=== PATIENT | female | born 1965 | race Caucasian/White ===

== ENCOUNTER → 2018-03-01 13:42 | Outpatient (CLI) | payer OTHER, SELFPAY ==
[2018-03-01 14:00] LABS: Add Manual Diff / Slide Review NO; Basophils Percent Auto 0.7 % (0-2); Hematocrit 38.6 % (36-46); Hemoglobin 13.7 g/dL (12.0-16.0); Lymphocytes Percent Auto 31.2 % (25-40); Mean Corpuscular HGB Conc 35.5 % (30-36); Mean Corpuscular Hemoglobin 32.3 PG (26-34); Mean Corpuscular Volume 90.8 fL (80-100); Monocytes Percent Auto 9.7 % (3-14); Neutrophils Absolute Auto 2900 /uL (3000-5900); Neutrophils Percent Auto 56.4 % (50-75); Platelet Count 188 X10^3/uL (150-400); Red Blood Cell Count 4.25 X10^6/uL (4.0-5.2); Red Cell Distribution Width 12.7 % (11.6-14.8); White Blood Cell Count 5.2 X10^3/uL (4.5-11.0)
[2018-03-01 14:20] LABS: Alanine Aminotransferase 26 IU/L (9-52); Albumin 4.1 g/dL (3.5-5.0); Albumin Globulin Ratio 1.6 (1.0-2.8); Alkaline Phosphatase 53 U/L (38-126); Aspartate Aminotransferase 27 IU/L (14-36); Bilirubin Total 0.3 mg/dL (0.2-1.3); Blood Urea Nitrogen 14 mg/dL (7-17); Calcium 9.5 mg/dL (8.4-10.2); Carbon Dioxide 27 mmol/L (22-32); Chloride 103 mmol/L (98-107); Estimated Glomerular Filt Rate > 60.0 mL/min (>60); Globulin 2.6 g/dL (1.7-4.1); Glucose 94 mg/dL (70-100); HEMOLYSIS < 15 (0-50); Sodium 140 mmol/L (137-145); Total Protein 6.7 g/dL (6.3-8.2)
== END ==
PROVIDERS: Family Provider Internal Medicine; PCP Internal Medicine; Visit Provider Nurse Practitioner Gerontology
DX: C50.912 Malignant neoplasm of unspecified site of left female breast (principal)
CPT/HCPCS: 36415; 80053; 85025

== ENCOUNTER 2018-03-28 12:52 | Day surgery (SDC) | payer OTHER, SELFPAY ==
[2018-03-28 13:28] VITALS: BP 119/72; PULSE 75; RESP 16; TEMP 36.2; O2SAT 98; BMI 29.9
[2018-03-28] MEDS: SODIUM CHLORIDE 0.9% 1,000 ML 200 ML IV (13:41)
--- NOTE | 2018-03-28 14:38 | PM.HP.1 ---
History of Present Illness Date Patient Seen: 03/28/18 Time Patient Seen: 14:38 Chief complaint: colonoscopy [id number] Narrative: Very pleasant 52-year-old lady presents for her 1st screening colonoscopy. She denies any problems or symptoms related to the function of her GI tract. She reports she needs colonoscopy as part of health maintenance program. Patient History Surgical History History of third molar tooth extraction Status post delivery (02/14/97) Status post tonsillectomy and adenoidectomy Family & Social History Family History: Reviewed 03/28/18 by Miriam Lino MD Social History: household members spouse Meds Home Medications Medication Instructions Recorded Confirmed Type fexofenadine 180 mg PO Q DAY #0 07/07/11 03/20/18 History MULTIVITAMIN 1 tab PO QDAY #0 tab 03/18/16 03/20/18 History fluticasone [Flonase Allergy 1 spray INTRANASAL QDAY #1 bot 03/18/16 03/20/18 History Relief] ibuprofen 400 mg PO PRN #0 04/08/16 History pseudoephedrine HCl 60 mg PO PRN PRN #0 04/08/16 History VITAMIN D (Vitamin D3) 2,000 unit PO QDAY #0 05/20/16 03/20/18 History [PROBIOTIC] Q DAY #0 05/20/16 History diphenhydramine HCl [Benadryl 25 mg PO Q6HP PRN #0 06/08/16 History Allergy] alprazolam [Xanax] 0.5 mg PO Q8HP PRN #60 tab 11/09/16 Rx oxybutynin chloride 5 mg PO BID #180 tab 05/18/17 03/20/18 Rx diclofenac sodium [Voltaren] 1 sima TOPICAL Q2HP PRN #100 gm 07/14/17 Rx estradiol [Vagifem] 10 mcg VAGINAL SEE INSTRUCTIONS #8 09/01/17 Rx tab fluconazole [Diflucan] 150 mg PO X 1 #2 tab 09/01/17 Rx estradiol [Estring] 0.0075 mg VAGINAL Q 3 MONTHS #1 icr 09/14/17 03/20/18 Rx tamoxifen 20 mg PO QDAY #90 tab 11/30/17 03/20/18 Rx albuterol sulfate [Ventolin HFA] 2 puff INH Q8H PRN 03/07/18 History anastrozole 1 mg tablet 1 mg PO DAILY #30 tab MDD 1 03/20/18 Rx Allergies Allergy/AdvReac Type Severity Reaction Status Date / Time codeine [CODEINE] Allergy Unknown vomiting Unverified 11/09/17 12:16 latex [LATEX] Allergy Unknown Unverified 11/09/17 12:16 Review of Systems Review of Systems All systems reviewed & are unremarkable except as noted in HPI and below Exam Vital Signs (past 8 hours): - 03/28/18 13:28 Temperature 97.2 F L Pulse Rate 75 Respiratory Rate 16 Blood Pressure 119/72 Pulse Oximetry 98 Oxygen Delivery Method Room Air Narrative Exam Narrative: Very pleasant, well-nourished, well-developed lady in no distress HEENT: Normocephalic and atraumatic, pupils equal round reactive to light accommodation with anicteric sclera Lungs: Clear to auscultation bilaterally Heart: Regular rate and rhythm without murmur rub or gallop Abdomen: Soft, nontender, active bowel sounds Extremities: Warm and well perfused Assessment & Plan Plan: Assessment/Plan Narrative: Very pleasant lady who presents for her 1st screening colonoscopy. We discussed the risks and benefits of the procedure the patient expressed a desire to complete it today
[2018-03-28] MEDS: ONDANSETRON 4 MG/2 ML INJ IV (14:55)
[2018-03-28] MEDS: MIDAZOLAM 5 MG/5 ML VIAL IV (14:57)
[2018-03-28] MEDS: fentaNYL 250 MCG/5 ML INJ IV (14:58)
--- NOTE | 2018-03-28 15:08 | PM.OP.1 ---
Operative Date/Time/Diagnoses Date of procedure: 03/28/18 Time of procedure: 15:08 Pre-op diagnosis: Screening Post-op diagnosis: same Procedure & Clinicians Procedure: Colonoscopy to the cecum Same procedure as scheduled: Yes Indications: No prior colonoscopy Surgeon: Miriam Lino Click Yes if Unassisted: Yes Anesthesia Type: Sedation (Versed 5 mg; fentanyl 150 mcg) Operative Notes Findings: 1. Excellent prep 2. No polyps or mass lesions 3. No AV malformations 4. Minimal diverticulosis with just a few small pockets in the sigmoid region 5. Normal mucosa throughout the colon 6. Grade 1-2 internal hemorrhoids 7. Essentially normal colonoscopy for age Closure Type: not applicable Procedure in detail: After obtaining informed consent, the patient was brought to the GI suite and placed in the left lateral decubitus position on the examination table. After placement of appropriate monitors, the patient was given incremental doses of Versed and Fentanyl until an appropriate level of sedation was achieved. A time out was held per SCOAP protocol. A digital rectal examination was performed and did not reveal any masses or obstructing lesions. The colonoscope was gently passed into the patient's anus and the entire colon navigated to the level of the cecum with minimal difficulty. Once in the cecum, the scope was withdrawn being sure to go before and beyond all mucosal folds and prominences and get an excellent examination. The findings are noted above. At the level of the rectal vault, the scope was retroflexed and the internal anal canal was examined. The scope was straightened and air aspirated from the colon. The instrument was removed from the patient's body and the procedure was concluded. The patient was allowed to awaken from sedation without difficulty and taken to the post-anesthesia care unit in good condition. Total sedation time 39 min Total withdrawal time 9 min 54 sec Complications: none Condition: stable Disposition: PACU Plan for aftercare: 1. Discharge to home 2. Plan for next colonoscopy in 10 years or as clinically indicated
[2018-03-28 15:10] VITALS: BP 130/78; PULSE 71; RESP 12; TEMP 36.4; O2SAT 94
[2018-03-28 15:15] VITALS: BP 132/74; PULSE 88; RESP 16; O2SAT 95
[2018-03-28 15:20] VITALS: BP 128/82; PULSE 68; RESP 12; TEMP 36; O2SAT 95
== END 2018-03-28 15:35 | disposition home or self-care (01) ==
PROVIDERS: Family Provider Internal Medicine; PCP Internal Medicine; Visit Provider Surgery
PROC: 0DJD8ZZ Inspection of Lower Intestinal Tract, Via Natural or Artificial Opening Endoscopic (ICD-10-PCS; CPT 45378; principal; 2018-03-28 14:00)
DX: Z12.11 Encounter for screening for malignant neoplasm of colon (principal); K57.30 Diverticulosis of large intestine without perforation or abscess without bleeding; K64.1 Second degree hemorrhoids
CPT/HCPCS: 45378; 99152; 99153; J2250; J2405; J3010

== ENCOUNTER 2018-05-18 10:00 | Oncology outpatient (ONC) | payer OTHER, SELFPAY ==
--- NOTE | 2017-12-21 11:52 | PC.NURSE ---
Addendum entered by Devi Lawson R.N. 12/21/17 14:39: Per Dr. Cleaning, it is okay for patient to take either supplement. Patient notified. Original Note: Call from patient. She is wondering if it is okay if she takes Turmeric or Farrah while taking Tamoxifen? Message in to Dr. Cleaning to advise.
--- NOTE | 2018-03-07 10:30 | ONC.PN ---
Assessment and Plan - Time Spent with Patient IMPRESSION: 1. T2 N0 poorly differentiated invasive ductal carcinoma of the left breast diagnosed March 08, 2016, ER/FL positive, HER2 equivocal (reported as positive by repeat FISH on mastectomy specimen). Status post left mastectomy April 21, 2016. Completed adjuvant chemotherapy with dose dense Adriamycin and Cytoxan followed by paclitaxel with trastuzumab weekly for 12 weeks. Started tamoxifen October 2016. Oncotype DX score 19, 10 year risk of recurrence with tamoxifen 12%. BRCA testing negative. 2. Migraine headaches. 3. Anxiety. 4. Irritable bowel syndrome. She continues to do well and without new symptoms or findings on examination to suggest recurrent disease. Continues on tamoxifen which she takes for about 50 days on than 30 days off to manage her headaches. We reviewed this today. She is willing to try shorter intervals to see if she can tolerate taking the medicine a bit more consistently. She understands questions regarding efficacy of this schedule. She had previous endometrial ablation and has not had menses since 2010 when she had the procedure. She would prefer to stay on tamoxifen then consider an aromatase inhibitor pending assessment of menopausal status. We discussed these issues and she will monitor and call back with updates on her symptoms as well as if any new concerns arise. PLAN: 1. Continue adjuvant therapy with tamoxifen as discussed. Started treatment October 2016. Anticipate 5-10 years of treatment as tolerated. Would plan to switch to an aromatase inhibitor in 1-2 years. 2. Calcium, vitamin-D and weight-bearing exercise program. 3. DEXA scan. 4. Monitor for new symptoms and call back as needed. 5. Return appointment here in 3 months. 6. CBC, CMP, CA 27.29 prior to the visit. DICTATED BY NESTOR MAK MD MEDICAL ONCOLOGY AND HEMATOLOGY PN -Subjective Interval history: IDENTIFICATION: Ms Sheriff is a 52-year-old woman with history of T2 N0 poorly differentiated invasive ductal carcinoma of the left breast diagnosed March 08, 2016, ER/FL positive, HER2 equivocal (reported as positive by repeat FISH on mastectomy specimen). Status post left mastectomy April 21, 2016. Completed adjuvant chemotherapy with dose dense Adriamycin and Cytoxan followed by paclitaxel with trastuzumab weekly for 12 weeks. Started tamoxifen October 2016. Oncotype DX score 19, 10 year risk of recurrence with tamoxifen 12%. BRCA testing negative. INTERVAL HISTORY: She returns today for treatment. Last seen here in clinic by Areli STRINGER November 22, 2017. Cancer care previously managed by Dr. Moody. She continues on adjuvant therapy with tamoxifen which she tolerates okay aside from headaches. Because of the headaches she takes her tamoxifen for about 50-60 days then stops for about 30 days off. Recently she did better and was able to continue on tamoxifen for 60 days. She made this plan with Dr. Moody to help with her symptoms. She otherwise denies new swelling in the breast or chest wall, cough, dyspnea, bone pain, headache or new neurologic symptoms. She had some discomfort in the left lateral chest following a recent trip where she admits to caring heavy purse and this has since resolved. Otherwise, occasional myalgias, arthralgias as well as fatigue. Symptoms come and go and are not a major issue she says. Past Medical History The patient's past medical history is significant for: 1) Invasive breast cancer. Stage II, (pT2, N0, M0) Diagnosis/surgery: 03/08/2016. Ultrasound core needle biopsy of the left breast at the 11:30 position. Pathology confirming infiltrating ductal carcinoma [place] histological grade 3. Immunostains positive for ER 95% positive for FL 90% HER-2 2+. FISH reporting a HER-2/CEP 17 ratio 2.80. HER-2 signal/cell was 2.8. CEP 17 signal/cell was 1.3. 04/21/2016. Bilateral mastectomy. Left-sided mastectomy confirming a primary invasive ductal carcinoma measuring 22 x 20 x 18 mm. [place] grade 3 with a mitotic score 3. Focus of DCIS was seen without necrosis. Focus of possible lymphatic invasion was also noted. 2 sentinel lymph nodes were identified both negative for disease. Posterior surgical margin was 4 mm. Right-sided mastectomy without evidence of malignancy or significant atypia. Clinical staging workup: 03/29/2016. CT of the chest abdomen and pelvis. No definitive evidence of distant spread. Nonspecific findings included: 2-3 mm nodule right lung, a 1 mm left lung nodule along the fissure, and a 2.4 cm cystic structure in the left adnexal region. Left breast confirming 19 x 17 x 18 mm spiculated mass. 4 mm satellite lesions seen. No axillary adenopathy. 10/06/2016. CT of the chest. Decreased nodularity along the fissure. No new lesion seen. 03/29/2016. Bone scan. No evidence of metabolic disease. Prognosis/risk factors: 05/10/2016. Oncotype DX. Recurrent score of 19. 10 year risk of distant recurrence after 5 years of tamoxifen 12%. 04/14/2016. BRCA testing through [employer] was negative. HER-2 Status: Positive. Repeat FISH for HER-2 on mastectomy specimen dated 04/21/2016 reporting a ratio of 2.74 with an average HER-2/nadeem of 3.2 and an average subset 17 of 1.2. Pathology again reporting possible monosomy 17 centromer which would elevate the ratio and provide a false positive result. Oncotype DX was run on 04/21/2016. At that time patient's HER-2 status was indeterminate based on IHC and FISH which again was suggestive of a monosomy 17 centromere. Indication for Oncotype test was not only for prognosis but also to assess HER-2 RNA production. Based on the repeat FISH assay on the mastectomy specimen the patient is now being deemed positive for HER-2. Adjuvant treatment: Adriamycin/cyclophosphamide 60/600 mg/m? given every 2 weeks ?4. Paclitaxel 80 mg/m? with concurrent Herceptin weekly ?12. Adjuvant anti-hormonal therapy at the completion of chemotherapy. 06/08/2016-10/26/2016. Adriamycin and cyclophosphamide ?4. Paclitaxel weekly ?9 with weekly Herceptin. Discontinued secondary to intolerable side effects and diminished EF as below. No maintenance Herceptin administered. 11/16/2016 -present. Tamoxifen 20 mg daily. Of note patient's had radiofrequency ablation to her uterine lining. Endometrial Surveillance: Baseline transvaginal ultrasound dated: 05/07/2016 reporting uterine fibroid measuring 21 mm. Endometreial lineing measuring 4.5 millimeters. 06/03/2017. Transvaginal U/S. Endometrial lining measuring 2.1 mm. 2) Overactive bladder evaluated by Dr. Michelle Amaro with a cystoscopy which was negative. Further evaluation with Dr. Amor undergoing. Patient is on oxybutynin for the past year with benefit. 3) menorrhagia status post radiofrequency ablation in 2009. 4) anxiety/depression. 5) irritable bowel disease. Laboratory Tests Test Result Date Time Chemistry Sodium (137 - 145 mmol/L) 140 11/17 1547 Potassium (3.5 - 5.1 mmol/L) 3.5 11/17 1547 Chloride (98 - 107 mmol/L) 102.0 11/17 1547 Carbon Dioxide (22 - 30 mmol/L) 24.0 11/17 1547 BUN (7 - 17 mg/dL) 14.0 11/17 1547 Creatinine (0.52 - 1.04 mg/dL) 0.70 11/17 154 Estimated GFR (MDRD) (>60 mL/min) >60.0 11/17 154 BUN/Creatinine Ratio (5.8 - 27.8) 20.0 11/17 154 Glucose (79 - 115 mg/dL) 106 11/17 1547 Calcium (8.4 - 10.2 mg/dL) 9.4 11/17 1547 Total Bilirubin (0.2 - 1.3 mg/dL) 0.3 11/17 1547 AST (14 - 36 IU/L) 30 11/17 154 ALT (9 - 52 IU/L) 24 11/17 154 Alkaline Phosphatase (38 - 126 U/L) 55 11/17 154 Total Protein (6.3 - 8.2 g/dL) 7.1 11/17 154 Albumin (3.5 - 5.0 g/dL) 4.2 11/17 154 Globulin (1.7 - 4.1 g/dL) 2.9 11/17 154 Albumin/Globulin Ratio (1 - 2.8) 1.4 11/17 1546 Hematology WBC (4.5 - 11 X10^3/uL) 6.3 11/17 1546 RBC (4.0 - 5.2 X10^6/uL) 4.34 11/17 1546 Hgb (12 - 16 G/DL) 13.5 11/17 1546 Hct (36 - 46 %) 39.3 11/17 154 MCV (80 - 100 FL) 90.7 11/17 154 MCH (26 - 34 PG) 31.1 11/17 154 MCHC (31 - 37 %) 34.3 11/17 1546 RDW (11.6 - 14.8 %) 12.6 11/17 1546 Plt Count (150 - 400 X10^3/uL) 210 11/17 1546 Neutrophils % (50 - 75 %) 64.9 11/17 154 Lymphocytes % (25 - 40 %) 25.7 11/17 154 Monocytes % (3 - 14 %) 6.9 04/19 1547 Eosinophils % (2 - 4 %) 1.9 L 11/17 1547 Basophils % (0 - 2 %) 0.6 11/17 1547 Absolute Neutrophils (3000 - 5900 /uL) 4100 11/17 1547 - Additional ROS Additional ROS: Review of systems: General: No fever or weight loss. HEENT: No vision change, dental pain or dysphagia. Respiratory: No cough or dyspnea. Cardiac: No chest pain, PND or orthopnea. GI: Negative. : Negative. Musculoskeletal: As above. Neurologic: Negative. Results - Imaging Additional studies: Procedures Endometrial ablation (08/18/10) Hysteroscopy (08/18/10) Laparoscopy (08/18/10) Other dilation and curettage (08/18/10) Removal of both fallopian tubes at same operative episode (08/18/10) Home Medications and Allergies Home Medications Medication Instructions Recorded Confirmed Type fexofenadine 180 mg PO Q DAY #0 07/07/11 History MULTIVITAMIN 1 tab PO QDAY #0 tab 03/18/16 History fluticasone [Flonase Allergy 1 spray INTRANASAL QDAY #1 bot 03/18/16 History Relief] ibuprofen 400 mg PO PRN #0 04/08/16 History pseudoephedrine HCl 60 mg PO PRN PRN #0 04/08/16 History VITAMIN D (Vitamin D3) 2,000 unit PO QDAY #0 05/20/16 History [PROBIOTIC] Q DAY #0 05/20/16 History diphenhydramine HCl [Benadryl 25 mg PO Q6HP PRN #0 06/08/16 History Allergy] alprazolam [Xanax] 0.5 mg PO Q8HP PRN #60 tab 11/09/16 Rx oxybutynin chloride 5 mg PO BID #180 tab 05/18/17 Rx diclofenac sodium [Voltaren] 1 sima TOPICAL Q2HP PRN #100 gm 07/14/17 Rx estradiol [Vagifem] 10 mcg VAGINAL SEE INSTRUCTIONS #8 09/01/17 Rx tab fluconazole [Diflucan] 150 mg PO X 1 #2 tab 09/01/17 Rx estradiol [Estring] 0.0075 mg VAGINAL Q 3 MONTHS #1 icr 09/14/17 Rx tamoxifen 20 mg PO QDAY #90 tab 11/30/17 Rx albuterol sulfate [Ventolin HFA] 2 puff INH Q8H PRN 03/07/18 History Allergies Allergy/AdvReac Type Severity Reaction Status Date / Time codeine [CODEINE] Allergy Unknown vomiting Unverified 11/09/17 12:16 latex [LATEX] Allergy Unknown Unverified 11/09/17 12:16 Exam - Constitutional positive no acute distress, positive average body habitus, positive cooperative - Routine HEENT Exam Head: Present: normocephalic, atraumatic Eye: Present: EOMI, PERRL. Absent: conjunctival icterus, scleral injection, periorbital ecchymosis, periorbital swelling ENT: Present: mucous membranes moist, oropharynx clear - Routine Neck Exam Present: full ROM. Absent: JVD, lymphadenopathy - Routine Chest/Breast/Axilla Exam Breast: Present: right mastectomy, left mastectomy. Absent: tenderness, mass Axillae: Absent: lymphadenopathy, mass - Routine Respiratory Exam Present: Clear to auscultation bilaterally. Absent: accessory muscle use, rales, stridor, wheezes - Routine Cardiovascular Exam Present: RRR, S1, S2. Absent: murmur, S3 - Routine Abdominal Exam Present: soft, normoactive bowel sounds. Absent: tenderness, distended, organomegaly Palpation/Percussion: Absent: hepatomegaly, splenomegaly - Routine Extremities Exam Absent: cyanosis, clubbing, edema, joint swelling - Routine Back/Spine Exam Back/Spine: Present: full ROM - Routine Skin Exam Present: intact. Absent: cyanosis, erythema, petechiae, jaundice, rash, ecchymosis - Routine Neurological Exam Present: alert, oriented X3, moving all extremities, normal speech. Absent: abnormal gait - Routine Psychiatric Exam Present: normal affect, normal thought process, cooperative, good judgment
[2018-03-07 10:40] VITALS: BP 127/97; PULSE 66; RESP 16; TEMP 35.9; O2SAT 98
[2018-05-09 10:46] VITALS: BP 134/82; PULSE 78; RESP 18; TEMP 36.9; O2SAT 98
--- NOTE | 2018-05-09 12:44 | ONC.PN ---
PN -Subjective Interval history: Diagnosis: Breast cancer, T2 N0 ERPR positive her 2 positive. Oncotype score was 19. BRCA was negative. Previous treatment: 1. Bilateral mastectomy April 2016. 2. Dose dense Adriamycin and Cytoxan followed by Taxol and Herceptin for 12 weeks. She apparently had some decrease in her ejection fraction with Herceptin. 3. Tamoxifen beginning in October 2016. She recently switched to a due to toxicity. Interval history: Ms Sheriff is a 52-year-old woman with history of T2 N0 poorly differentiated invasive ductal carcinoma of the left breast diagnosed March 08, 2016, ER/[place] positive, HER2 equivocal (reported as positive by repeat FISH on mastectomy specimen). Status post left mastectomy April 21, 2016. Completed adjuvant chemotherapy with dose dense Adriamycin and Cytoxan followed by paclitaxel with trastuzumab weekly for 12 weeks. Started tamoxifen October 2016. Oncotype DX score 19, 10 year risk of recurrence with tamoxifen 12%. BRCA testing negative. She returns today for follow-up. Since her last visit here, she had stopped her tamoxifen due to side effects, specifically persistent headaches. She started on Arimidex. She was having trouble with increased anxiety. She also had difficulty sleeping with that. Few days ago, she awoke with some chest pain and shortness of breath. She used her inhalers which did not seem to help very much. Her symptoms did resolve a ventrally. She ran out of her medication around that time and has been off of it for the last 3 or 4 days. She notes that her symptoms have improved somewhat since then. She still is bothered by anxiety and difficulty sleeping though. She has not noted any changes in the breast. She denies any persistent aches or pains. She has not noted any adenopathy. 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 She does not smoke or use alcohol. She is . Family history: She has several family members with a history of thyroid cancer. Her grandmother and grandmother sister both had breast cancer. In addition she has a cousin who had a history of breast cancer. Past Medical History 2) Overactive bladder evaluated by Dr. Michelle Amaro with a cystoscopy which was negative. Further evaluation with Dr. Amor undergoing. Patient is on oxybutynin for the past year with benefit. 3) menorrhagia status post radiofrequency ablation in 2009. 4) anxiety/depression. 5) irritable bowel disease. Laboratory Tests Test Result Date Time Chemistry Sodium (137 - 145 mmol/L) 140 11/17 1547 Potassium (3.5 - 5.1 mmol/L) 3.5 11/17 1547 Chloride (98 - 107 mmol/L) 102.0 11/17 1547 Carbon Dioxide (22 - 30 mmol/L) 24.0 11/17 1547 BUN (7 - 17 mg/dL) 14.0 11/17 1547 Creatinine (0.52 - 1.04 mg/dL) 0.70 11/17 154 Estimated GFR (MDRD) (>60 mL/min) >60.0 11/17 154 BUN/Creatinine Ratio (5.8 - 27.8) 20.0 11/17 154 Glucose (79 - 115 mg/dL) 106 11/17 1547 Calcium (8.4 - 10.2 mg/dL) 9.4 11/17 154 Total Bilirubin (0.2 - 1.3 mg/dL) 0.3 11/17 1547 AST (14 - 36 IU/L) 30 11/17 1547 ALT (9 - 52 IU/L) 24 11/17 154 Alkaline Phosphatase (38 - 126 U/L) 55 11/17 1547 Total Protein (6.3 - 8.2 g/dL) 7.1 11/17 1547 Albumin (3.5 - 5.0 g/dL) 4.2 11/17 1547 Globulin (1.7 - 4.1 g/dL) 2.9 11/17 154 Albumin/Globulin Ratio (1 - 2.8) 1.4 11/17 154 Hematology WBC (4.5 - 11 X10^3/uL) 6.3 11/17 1547 RBC (4.0 - 5.2 X10^6/uL) 4.34 11/17 1547 Hgb (12 - 16 G/DL) 13.5 11/17 154 Hct (36 - 46 %) 39.3 11/17 1546 MCV (80 - 100 FL) 90.7 11/17 154 MCH (26 - 34 PG) 31.1 11/17 154 MCHC (31 - 37 %) 34.3 11/17 154 RDW (11.6 - 14.8 %) 12.6 11/17 1546 Plt Count (150 - 400 X10^3/uL) 210 11/17 1547 Neutrophils % (50 - 75 %) 64.9 11/17 1547 Lymphocytes % (25 - 40 %) 25.7 11/17 1547 Monocytes % (3 - 14 %) 6.9 11/17 1547 Eosinophils % (2 - 4 %) 1.9 L 11/17 1547 Basophils % (0 - 2 %) 0.6 11/17 1547 Absolute Neutrophils (3000 - 5900 /uL) 4100 11/17 1547 - Patient Self-Reported Symptoms SR Constitution: Fatigue/Malaise SR Musculoskeletal issues: Muscle pain or cramps, Difficulty walking SR Neuro issues: Numbness or tingling SR Endocrine issues: Cold intolerance, Heat intolerance Home Medications and Allergies Home Medications Medication Instructions Recorded Confirmed Type fexofenadine 180 mg PO Q DAY #0 07/07/11 03/20/18 History MULTIVITAMIN 1 tab PO QDAY #0 tab 03/18/16 03/20/18 History fluticasone [Flonase Allergy 1 spray INTRANASAL QDAY #1 bot 03/18/16 03/20/18 History Relief] ibuprofen 400 mg PO PRN #0 04/08/16 History pseudoephedrine HCl 60 mg PO PRN PRN #0 04/08/16 History VITAMIN D (Vitamin D3) 2,000 unit PO QDAY #0 05/20/16 03/20/18 History [PROBIOTIC] Q DAY #0 05/20/16 History diphenhydramine HCl [Benadryl 25 mg PO Q6HP PRN #0 06/08/16 History Allergy] alprazolam [Xanax] 0.5 mg PO Q8HP PRN #60 tab 11/09/16 Rx oxybutynin chloride 5 mg PO BID #180 tab 05/18/17 03/20/18 Rx diclofenac sodium [Voltaren] 1 sima TOPICAL Q2HP PRN #100 gm 07/14/17 Rx fluconazole [Diflucan] 150 mg PO X 1 #2 tab 09/01/17 Rx estradiol [Estring] 0.0075 mg VAGINAL Q 3 MONTHS #1 icr 09/14/17 03/20/18 Rx albuterol sulfate [Ventolin HFA] 2 puff INH Q8H PRN 03/07/18 History anastrozole 1 mg tablet 1 mg PO DAILY #30 tab MDD 1 03/20/18 Rx exemestane 25 mg PO DAILY 90 Days #90 tab 05/09/18 Rx Allergies Allergy/AdvReac Type Severity Reaction Status Date / Time codeine [CODEINE] Allergy Unknown vomiting Unverified 11/09/17 12:16 latex [LATEX] Allergy Unknown Unverified 11/09/17 12:16 Exam Vital signs: Last Vital Signs Temp 98.4 F 05/09/18 10:46 Pulse 78 05/09/18 10:46 Resp 18 05/09/18 10:46 BP 134/82 05/09/18 10:46 Pulse Ox 98 05/09/18 10:46 - Constitutional positive no acute distress, positive average body habitus - Routine HEENT Exam Head: Present: normocephalic, atraumatic Eye: Present: EOMI, PERRL. Absent: conjunctival icterus, scleral injection ENT: Present: mucous membranes moist, oropharynx clear - Routine Neck Exam Present: supple. Absent: lymphadenopathy, thyromegaly - Routine Chest/Breast/Axilla Exam Chest wall exam standard: Absent: tenderness, mass Comments: She has well-healed bilateral reconstructions after mastectomy. There is no axillary adenopathy on either side. - Routine Respiratory Exam Present: Clear to auscultation bilaterally. Absent: rales, wheezes - Routine Cardiovascular Exam Present: RRR, S1, S2. Absent: murmur - Routine Abdominal Exam Present: soft, normoactive bowel sounds. Absent: tenderness, organomegaly, mass - Routine Extremities Exam Absent: cyanosis, clubbing, edema - Routine Back/Spine Exam Back/Spine: Absent: paraspinal tenderness, vertebral tenderness - Routine Skin Exam Present: intact. Absent: petechiae, rash - Routine Neurological Exam Present: alert, oriented X3 - Routine Psychiatric Exam Present: normal affect, normal thought process Results - Imaging Additional studies: Procedures Endometrial ablation (08/18/10) Hysteroscopy (08/18/10) Laparoscopy (08/18/10) Other dilation and curettage (08/18/10) Removal of both fallopian tubes at same operative episode (08/18/10) Assessment and Plan (1) Breast cancer, left breast Problem details: A 53-year-old woman history of stage she skin her. She has no evidence of recurrence. She has been struggling with her hormone therapy and side effects. We discussed options today including continue with her current regimen or switching to a different aromatase inhibitor. In the end, I have given her a prescription for exemestane 25 mg daily. And she will try that. She will return to clinic in about 3 months for follow-up. Current visit: No Status: Acute
--- NOTE | 2018-05-12 13:57 | PC.NURSE ---
Addendum entered by Christopher Contreras R.N. 05/12/18 14:27: Spoke with pt and did an overview of this medication. Pt is still apprehensive about starting this drug due the poor results with others ie tamoxifen and anastrozole. I have encouraged her to see Areli for a better overview of the drug and preventive symptom management if needed. She has agreed and an appt will be scheduled Original Note: Pt left message with concerns about her new medication Exemestane recently prescribed on 05.09. She stated her concern was that she noticed it contained steroids and didn't think this medication would work for her. She also mentioned she was thinking about possible going the natural path route. After reviewing the drug manufactures prescribing information no where can I find that this medication contains a steroid. In fact it states that it is a steroidal inhibitor. There is also a complete section where it discusses the effects on the bodies natural corticosteroids. This can be found at 12.2 Pharmacodynamics. I returned her call but was unable to speak to her and her mailbox was full so no message could be left. I will try to speak with her on Tuesday 05/15 and update this note after talking to her
--- NOTE | 2018-05-15 13:51 | ONC.NAV ---
Description: T/C Activity: Returned pt's call. She states that she is coming in to see Areli Johnson on 05/18 to talk about the side-effects that she is having with her current aromatase inhibitor medication. She shared that she felt it made her anxiety significantly worse, and that she can't even imagine taking this kind of medication for another month. She will also be exploring some naturopathic options with Dr. Zoey Solares. USER EXPERIENCE ANALYST offered coping support, however pt feels like she would like to check in with me again after she meets with Areli, so we can approach these concerns that she is having with the hope of having more of a next-steps plan to work on. Plan: Will plan to check-in with pt at the end of the week.
--- NOTE | 2018-05-18 09:59 | ONC.APRN.PN ---
PN -Subjective Interval history: Diagnosis: Breast cancer, T2 N0 ERPR positive her 2 positive. Oncotype score was 19. BRCA was negative. Previous treatment: 1. Bilateral mastectomy April 2016. 2. Dose dense Adriamycin and Cytoxan followed by Taxol and Herceptin for 12 weeks. She apparently had some decrease in her ejection fraction with Herceptin. 3. Tamoxifen beginning in October 2016. She recently switched to a due to toxicity. Interval history: Ms Sheriff is a 52-year-old woman with history of T2 N0 poorly differentiated invasive ductal carcinoma of the left breast diagnosed March 08, 2016, ER/[place] positive, HER2 equivocal (reported as positive by repeat FISH on mastectomy specimen). Status post left mastectomy April 21, 2016. Completed adjuvant chemotherapy with dose dense Adriamycin and Cytoxan followed by paclitaxel with trastuzumab weekly for 12 weeks. Started tamoxifen October 2016. Oncotype DX score 19, 10 year risk of recurrence with tamoxifen 12%. BRCA testing negative. She stopped tamoxifen due to persistent headaches. She then started on Arimidex. She was having trouble with increased anxiety. She also had difficulty sleeping with that, did not want to resume. She met with DR Karimi who RX'd exemestane. The pt has had difficulty filling this prescription at her pharmacy. She goes on to state ?I have read about this medicine it is the same as the others it is going to cause the same problems I do not even want to take it?. Patient goes on to report her anxiety is severe. She will awake with chest pain and feeling as though her throat is closing. She has excellent coping mechanisms she can get through these acute episodes with meditation and specific breathing techniques however some anxiety will carry over and last for about 6 months. 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 She has not noted any changes in the breast. She denies any persistent aches or pains. She has not noted any adenopathy. 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 She does not smoke or use alcohol. She is . Family history: She has several family members with a history of thyroid cancer. Her grandmother and grandmother sister both had breast cancer. In addition she has a cousin who had a history of breast cancer. Past Medical History 2) Overactive bladder evaluated by Dr. Michelle Amaro with a cystoscopy which was negative. Further evaluation with Dr. Amor undergoing. Patient is on oxybutynin for the past year with benefit. 3) menorrhagia status post radiofrequency ablation in 2009. 4) anxiety/depression. 5) irritable bowel disease. Laboratory Tests Test Result Date Time Chemistry Sodium (137 - 145 mmol/L) 140 11/17 1547 Potassium (3.5 - 5.1 mmol/L) 3.5 11/17 1547 Chloride (98 - 107 mmol/L) 102.0 11/17 1547 Carbon Dioxide (22 - 30 mmol/L) 24.0 11/17 1547 BUN (7 - 17 mg/dL) 14.0 11/17 1547 Creatinine (0.52 - 1.04 mg/dL) 0.70 11/17 154 Estimated GFR (MDRD) (>60 mL/min) >60.0 11/17 154 BUN/Creatinine Ratio (5.8 - 27.8) 20.0 11/17 154 Glucose (79 - 115 mg/dL) 106 11/17 1547 Calcium (8.4 - 10.2 mg/dL) 9.4 11/17 1547 Total Bilirubin (0.2 - 1.3 mg/dL) 0.3 11/17 1547 AST (14 - 36 IU/L) 30 11/17 1547 ALT (9 - 52 IU/L) 24 11/17 154 Alkaline Phosphatase (38 - 126 U/L) 55 11/17 154 Total Protein (6.3 - 8.2 g/dL) 7.1 11/17 154 Albumin (3.5 - 5.0 g/dL) 4.2 11/17 154 Globulin (1.7 - 4.1 g/dL) 2.9 11/17 154 Albumin/Globulin Ratio (1 - 2.8) 1.4 11/17 154 Hematology WBC (4.5 - 11 X10^3/uL) 6.3 11/17 1547 RBC (4.0 - 5.2 X10^6/uL) 4.34 11/17 154 Hgb (12 - 16 G/DL) 13.5 11/17 154 Hct (36 - 46 %) 39.3 11/17 1546 MCV (80 - 100 FL) 90.7 11/17 1546 MCH (26 - 34 PG) 31.1 11/17 154 MCHC (31 - 37 %) 34.3 11/17 1547 RDW (11.6 - 14.8 %) 12.6 11/17 1547 Plt Count (150 - 400 X10^3/uL) 210 11/17 1547 Neutrophils % (50 - 75 %) 64.9 11/17 1547 Lymphocytes % (25 - 40 %) 25.7 11/17 1547 Monocytes % (3 - 14 %) 6.9 11/17 1547 Eosinophils % (2 - 4 %) 1.9 L 11/17 1547 Basophils % (0 - 2 %) 0.6 11/17 1547 Absolute Neutrophils (3000 - 5900 /uL) 4100 11/17 1547 - Patient Self-Reported Symptoms SR Constitution: Fatigue/Malaise SR Musculoskeletal issues: Muscle pain or cramps, Difficulty walking SR Neuro issues: Numbness or tingling SR Endocrine issues: Cold intolerance, Heat intolerance Home Medications and Allergies Home Medications Medication Instructions Recorded Confirmed Type fexofenadine 180 mg PO Q DAY #0 07/07/11 03/20/18 History MULTIVITAMIN 1 tab PO QDAY #0 tab 03/18/16 03/20/18 History fluticasone [Flonase Allergy 1 spray INTRANASAL QDAY #1 bot 03/18/16 03/20/18 History Relief] ibuprofen 400 mg PO PRN #0 04/08/16 History pseudoephedrine HCl 60 mg PO PRN PRN #0 04/08/16 History VITAMIN D (Vitamin D3) 2,000 unit PO QDAY #0 05/20/16 03/20/18 History [PROBIOTIC] Q DAY #0 05/20/16 History diphenhydramine HCl [Benadryl 25 mg PO Q6HP PRN #0 06/08/16 History Allergy] alprazolam [Xanax] 0.5 mg PO Q8HP PRN #60 tab 11/09/16 Rx oxybutynin chloride 5 mg PO BID #180 tab 05/18/17 03/20/18 Rx diclofenac sodium [Voltaren] 1 sima TOPICAL Q2HP PRN #100 gm 07/14/17 Rx fluconazole [Diflucan] 150 mg PO X 1 #2 tab 09/01/17 Rx estradiol [Estring] 0.0075 mg VAGINAL Q 3 MONTHS #1 icr 02/14/18 08/20/18 Rx albuterol sulfate [Ventolin HFA] 2 puff INH Q8H PRN 03/07/18 History anastrozole 1 mg tablet 1 mg PO DAILY #30 tab MDD 1 03/20/18 Rx exemestane 25 mg PO DAILY 90 Days #90 tab 05/09/18 Rx Allergies Allergy/AdvReac Type Severity Reaction Status Date / Time codeine [CODEINE] Allergy Unknown vomiting Unverified 11/09/17 12:16 latex [LATEX] Allergy Unknown Unverified 11/09/17 12:16 Exam - Constitutional positive no acute distress, positive average body habitus - Routine Respiratory Exam Absent: respiratory distress - Routine Skin Exam Present: intact. Absent: rash - Routine Neurological Exam Present: alert, oriented X3 - Routine Psychiatric Exam Present: normal affect, normal thought process, good insight, good judgment Results - Imaging Additional studies: Procedures Endometrial ablation (08/18/10) Hysteroscopy (08/18/10) Laparoscopy (08/18/10) Other dilation and curettage (08/18/10) Removal of both fallopian tubes at same operative episode (08/18/10) Assessment and Plan (1) Breast cancer, left breast Problem details: A 53-year-old woman history of stage she skin her. She has no evidence of recurrence. She has been struggling with her hormone therapy and side effects. We discussed options today including continue with her current regimen or switching to a different aromatase inhibitor. In the end, I have given her a prescription for exemestane 25 mg daily. And she will try that. She will return to clinic in about 3 months for follow-up. Current visit: No Status: Acute Diagnosis: Breast cancer, T2 N0 ERPR positive her 2 positive. Oncotype score was 19. BRCA was negative. Previous treatment: 1. Bilateral mastectomy April 2016. 2. Dose dense Adriamycin and Cytoxan followed by Taxol and Herceptin for 12 weeks. She apparently had some decrease in her ejection fraction with Herceptin. 3. Tamoxifen beginning in October 2016. She recently switched to a due to toxicity. Sarah presents today reporting ongoing anxiety and she does not wish at this time to start exemestane. She states :I just cant do it, I cant live my life while taking that medicine. I discussed at length with Sarah her oncotype score of 19 and what that means. I also discussed with her that while exemestane is a cousin to arimidex she may not have any of the same side effects however I do not have a crystal ball I do not know hoe she will respond. She states she does not want to try at this point. I then reviewed with her how we montior for cancer recurrence. She askes to return in 6 months, I compromised with 3 months for a head to toe exam, cbc cmp ca 27.29. In the meantime she will be seeing a bleach plant operator. - Time Spent with Patient 30 mins face to face with pt in consultation 5 mins prior records review 5 mins dictation 5 mins coordination of care with PROCESS CONTROL ENGINEER
[2018-05-18 10:09] VITALS: BP 127/88; PULSE 65; RESP 18; TEMP 36.2; O2SAT 96
== END 2018-05-19 12:00 | disposition home or self-care (01) ==
PROVIDERS: Family Provider Internal Medicine; PCP Internal Medicine; Visit Provider Nurse Practitioner Gerontology
DX: C50.212 Malignant neoplasm of upper-inner quadrant of left female breast (principal); Z17.0 Estrogen receptor positive status [ER+]; Z80.3 Family history of malignant neoplasm of breast; Z79.811 Long term (current) use of aromatase inhibitors
CPT/HCPCS: 99214; 99215

== ENCOUNTER → 2018-11-29 08:55 | Outpatient (CLI) | payer OTHER, SELFPAY ==
--- NOTE | 2018-11-29 | DI.US.S_ITS ---
PROCEDURE: US ABDOMEN COMPLETE INDICATIONS: FATTY LIVER TECHNIQUE: Real-time scanning was performed of the abdominal and retroperitoneal organs, with image documentation. COMPARISON: [facility], CT, CHEST/ABD/PEL WITH CONTRAST, 03/29/2016, 12:35. [facility], CT, ABDOMEN/PELVIS WITH CONTRAST, 06/26/2011, 21:39. FINDINGS: Liver: Liver is diffusely increased in echogenicity. No focal hepatic abnormalities identified. Normal hepatic size. Gallbladder: No gallstones identified. Normal gallbladder wall. No pericholecystic fluid. Negative sonographic Choudhary sign. Biliary ducts: Intrahepatic bile ducts are non-dilated. Extrahepatic bile duct caliber measures 4.7 mm. Normal is 6-7 mm or less in diameter, or 10 mm or less post-cholecystectomy. Pancreas: Visualized portions of the pancreas are sonographically normal. Spleen: Spleen is normal in size and homogeneous in echotexture. Kidneys: Kidneys are normal in size and echotexture. Right kidney measures 10.6 cm long; left kidney measures 11.2 cm long. No hydronephrosis or nephrolithiasis. No solid masses. Aorta: Visualized aorta is normal in caliber at less than 3 cm. Iliacs: Proximal common iliac arteries are normal in caliber at less than 2.5 cm. IVC: Intrahepatic inferior vena cava is patent. Miscellaneous: No free abdominal fluid. IMPRESSION: 1. Increased hepatic echogenicity noted possibly related to hepatic steatosis but other sources of hepatocellular disease cannot be excluded. Recommend clinical correlation. Dictated by: Giorgio KULKARNI Interpreted: Chuy Grimaldo MD on 11/29/2018 at 12:57 Approved by: Chuy Grimaldo M.D. on 11/29/2018 at 14:29
[2018-11-29 09:51] LABS: Add Manual Diff / Slide Review NO; Basophils Absolute Auto 0 /uL (0-100); Basophils Percent Auto 0.6 % (0-2); Eosinophils Absolute Auto 100 /uL (0-450); Eosinophils Percent Auto 2.8 % (2-4); Hemoglobin 14.4 g/dL (12.0-16.0); Lymphocytes Absolute Auto 1500 /uL (1100-4500); Lymphocytes Percent Auto 30.8 % (25-40); Mean Corpuscular HGB Conc 34.2 % (30-36); Mean Corpuscular Hemoglobin 30.7 PG (26-34); Mean Corpuscular Volume 89.6 fL (80-100); Monocytes Absolute Auto 500 /uL (0-900); Monocytes Percent Auto 9.9 % (3-14); Neutrophils Absolute Auto 2800 /uL (1500-7000); Neutrophils Percent Auto 55.9 % (50-75); Platelet Count 227 X10^3/uL (150-400); Red Blood Cell Count 4.68 X10^6/uL (4.0-5.2); Red Cell Distribution Width 12.8 % (11.6-14.8)
[2018-11-29 09:53] LABS: Alanine Aminotransferase 28 IU/L (9-52); Albumin 4.5 g/dL (3.5-5.0); Albumin Globulin Ratio 1.4 (1.0-2.8); Alkaline Phosphatase 80 U/L (38-126); Aspartate Aminotransferase 26 IU/L (14-36); BUN Creatinine Ratio 18.8 (6-22); Bilirubin Total 0.6 mg/dL (0.2-1.3); Blood Urea Nitrogen 15 mg/dL (7-17); Calcium 9.8 mg/dL (8.4-10.2); Carbon Dioxide 29 mmol/L (22-32); Chloride 102 mmol/L (98-107); Cholesterol 200 mg/dL (140-199); Estimated Glomerular Filt Rate > 60.0 mL/min (>60); Globulin 3.2 g/dL (1.7-4.1); Glucose 100 mg/dL (70-100); HDL Cholesterol 60 mg/dL (40-60); HEMOLYSIS < 15 (0-50); LDL Cholesterol Calculated 124 mg/dL (<100); Sodium 140 mmol/L (137-145); Total Protein 7.7 g/dL (6.3-8.2); Triglycerides 80 mg/dL (35-150)
[2018-11-29 10:28] LABS: TSH w/ Reflex to FT4 1.38 uIU/mL (0.47-4.68)
== END ==
PROVIDERS: PCP Internal Medicine; Visit Provider Internal Medicine
DX: C50.212 Malignant neoplasm of upper-inner quadrant of left female breast (principal); I50.9 Heart failure, unspecified; R53.83 Other fatigue; K76.0 Fatty (change of) liver, not elsewhere classified
CPT/HCPCS: 36415; 76700; 80053; 80061; 84443; 85025

== ENCOUNTER → 2018-12-06 13:35 | Outpatient (CLI) | payer OTHER, SELFPAY ==
--- NOTE | 2018-12-06 09:00 | DI.ECHO.S_ITS ---
Echocardiogram Report + + :Name: ALLY PIMENTEL Study Date: 12/06/2018 Height: 64 in : :[facility] Exam Location: [facility] Weight: 160 lb : : Gender: Female BSA: 1.8 m2 : :: 1965 Age: 53 yrs BP: 130/80 mmHg: :Reason For Study: Heart failure : :Ordering Physician: Dr. Nova : :Aric Performed By: Merlyn Page : + + Interpretation Summary Left ventricular systolic function is moderately reduced with the ejection fraction estimated to be 40-45% with moderate global hypokinesis but no focal wall motion abnormalities and appears unchanged compared to the previous study. The left ventricle is mildly dilated but is unchanged compared to the previous study. There has been no significant change since the previous study. The right ventricle is normal size and right ventricular systolic function is at the lower limits of normal and is unchanged compared to the previous study. Pulmonary artery pressures cannot be estimated because of the lack of a measurable TR jet velocity but the IVC suggests a CVP of around 3 mmHg. The left atrium is mildly dilated but is unchanged compared to the previous study. There is no significant valvular heart disease. The aortic root is borderline dilated and the ascending aorta is mildmoderately enlarged. Both have increased in size compared to the previous study. The patient was in sinus bradycardia with heart rates between 52-56 bpm during the exam. Procedure: A two-dimensional transthoracic echocardiogram with color flow and Doppler was performed. The study quality was technically adequate. Comparison is made with the echocardiogram of 01/13/2017. The patient was in sinus bradycardia with heart rates between 52-56 bpm during the exam. Left Ventricle: The left ventricle is mildly dilated. This is unchanged compared to the previous study. Left ventricular wall thickness is normal. Left ventricular systolic function is moderately reduced. The ejection fraction is estimated to be 40-45%. There is moderate global hypokinesis of the left ventricle. There are no focal wall motion abnormalities. This is unchanged compared to the previous study. Diastolic function could not be accurately assessed due to contradictory data. There has been no significant change since the previous study. Right Ventricle: The right ventricle is normal size. Right ventricular systolic function is at the lower limits of normal. This is unchanged compared to the previous study. Atria: The left atrium is mildly dilated. Right atrial size is normal. This is unchanged compared to the previous study. There is no Doppler evidence for an interatrial shunt. Mitral Valve: The mitral valve is grossly normal. There is trace mitral regurgitation. Aortic Valve: The aortic valve is not well visualized. The aortic valve is grossly normal. The aortic valve opens well. There is no aortic valve stenosis. No aortic regurgitation is present. Tricuspid Valve: The tricuspid valve is normal in structure and function. There is a trace or physiologic amount of tricuspid regurgitation. Pulmonary artery pressures cannot be estimated because of the lack of a measurable TR jet velocity but the IVC suggests a CVP of around 3 mmHg. Pulmonic Valve: The pulmonic valve is not well visualized. There is trace pulmonic regurgitation. There is no significant valvular heart disease. Great Vessels: The aortic root is borderline dilated. The ascending aorta is mild-moderately enlarged. This is increased in size compared to the previous study. The pulmonary is not well visualized. The IVC is of normal diameter and collapses greater than 50% with a sniff. This suggests a low right atrial pressure of 3 mm Hg. Pericardium/ Pleura There is no pericardial effusion. There is no pleural effusion. MMode/2D Measurements & Calculations LVIDd: 5.2 cm Ao root diam: 3.8 cm LVIDs: 3.2 cm asc Aorta Diam: 3.9 cm FS: 38.2 % IVSd: 0.78 cm LVPWd: 0.81 cm LV joseph. diameter/BSA (cm/m^2): 2.9 LV sys. diameter/BSA (cm/m^2): 1.8 LA A2 area: 19.9 cm2 RA long axis: 4.7 cm LA A4 area: 20.6 cm2 RA area: 14.9 cm2 LA length (vol): 5.3 cm RA vol: 40.0 ml LA vol: 65.7 ml RA : 22.5 ml/m2 LA vol index: 36.9 ml/m2 IVC diam: 1.4 cm RVD1 (basal): 3.9 cm TAPSE: 1.7 cm Doppler Measurements & Calculations Ao V2 max: 91.6 cm/sec LVOT Max Se: 60.0 cm/sec Ao V2 mean: 64.9 cm/sec LV V1 max P.4 mmHg Ao max P.4 mmHg LV V1 VTI: 12.9 cm Ao mean P.8 mmHg sev ratio: 0.61 Ao V2 VTI: 21.2 cm MV E max se: 71.1 cm/sec PA V2 max: 56.8 cm/sec MV A max se: 77.9 cm/sec PA V2 mean: 40.7 cm/sec MV E/A: 0.91 PA mean P.72 mmHg Med Peak E' Se: 5.1 cm/sec PA Accel Time: 0.17 sec E/E' med: 14.1 Lat Peak E' Se: 6.7 cm/sec E/E' lat: 10.6 E/e' average: 12.3 MV dec time: 0.27 sec MV P1/2t: 78.6 msec MV P1/2t max se: 71.2 cm/sec MVA(P1/2t): 2.8 cm2 _ Reading Physician:SHANNON
== END ==
PROVIDERS: PCP Internal Medicine; Visit Provider Internal Medicine
DX: I50.9 Heart failure, unspecified (principal); I77.89 Other specified disorders of arteries and arterioles; R00.1 Bradycardia, unspecified
CPT/HCPCS: 93306

== ENCOUNTER → 2019-03-19 10:33 | Outpatient (CLI) | payer OTHER, SELFPAY ==
--- NOTE | 2019-03-19 | DI.RAD.S_ITS ---
PROCEDURE: XR ANKLE LT MIN 3V INDICATIONS: LT ANKLE PAIN TECHNIQUE: 3 views of the ankle were acquired. COMPARISON: None. FINDINGS: Bones: No fractures or dislocations. Ankle mortise is normally aligned. No suspicious bony lesions. Small plantar calcaneal spur. Soft tissues: No significant swelling appreciated. No tibiotalar joint effusion. Achilles tendon appears normal. IMPRESSION: No acute osseous abnormality. Mild ankle degenerative change. Dictated by: Song Foster M.D. on 03/19/2019 at 11:43 Approved by: Song Foster M.D. on 03/19/2019 at 11:56
== END ==
PROVIDERS: PCP Internal Medicine; Visit Provider Student in an Organized Health Care Education/Training Program
DX: M25.572 Pain in left ankle and joints of left foot (principal); M77.32 Calcaneal spur, left foot
CPT/HCPCS: 73610

== ENCOUNTER 2019-05-16 22:07 | Emergency (ER) | payer OTHER, SELFPAY ==
--- NOTE | 2019-05-16 22:20 | DI.CT.S_ITS ---
PROCEDURE: CT HEAD/BRAIN WO CON INDICATIONS: numb, tingling in hands TECHNIQUE: Noncontrast 4.5 mm thick angled axial sections acquired from the foramen magnum to the vertex, with coronal and sagittal reformats. For radiation dose reduction, the following was used: automated exposure control, adjustment of mA and/or kV according to patient size. COMPARISON: [facility], CT, HEAD WITHOUT CONTRAST, 06/21/2013, 13:45. FINDINGS: Image quality: It is noted that the foramen magnum is not fully included within the [id number]. CSF spaces: Basal cisterns are patent. No extra-axial fluid collections. Ventricles are normal in size and shape. Brain: No midline shift. No intracranial masses or hemorrhage. Clifford-white matter interface is normal. Cerebellar tonsils are low-lying. They are not visualized in their entirety. Skull and face: Calvarium and visualized facial bones are intact, without suspicious lesions. Sinuses: Visualized sinuses and mastoids are clear. IMPRESSION: 1. No acute intracranial process. 2. Low-lying cerebellar tonsils. However, as noted above, they are not fully included within the [id number] and Chiari one malformation cannot be excluded. As clinically indicated, followup imaging may be obtained for additional evaluation. The above findings are concordant with preliminary report. Dictated by: Kelsey Vale M.D. on 05/17/2019 at 8:01 Approved by: Kelsey Vale M.D. on 05/17/2019 at 8:03
--- NOTE | 2019-05-16 22:20 | DI.RAD.S_ITS ---
PROCEDURE: XR CHEST 1V INDICATIONS: SOB TECHNIQUE: One view of the chest was acquired. COMPARISON: [facility], , CHEST 1 VIEW, 04/21/2016, 12:19. FINDINGS: Surgical changes and devices: Bilateral surgical clips in the axilla/breast regions. Lungs and pleura: Lungs are clear. No pleural effusions or pneumothorax. Mediastinum: Mediastinal contours appear normal. Heart size is normal. Bones and chest wall: No suspicious bony lesions. Overlying soft tissues appear unremarkable. IMPRESSION: No acute disease Dictated by: Pernell Koroma M.D. on 05/17/2019 at 9:07 Approved by: Pernell Koroma M.D. on 05/17/2019 at 9:14
[2019-05-16 22:21] VITALS: BP 148/86; PULSE 68; RESP 20; TEMP 36.6; O2SAT 98
[2019-05-16 22:43] LABS: Add Manual Diff / Slide Review NO; Basophils Absolute Auto 0 /uL (0-100); Basophils Percent Auto 0.6 % (0-2); Eosinophils Absolute Auto 200 /uL (0-450); Hematocrit 40.5 % (36-46); Hemoglobin 14.3 g/dL (12.0-16.0); Lymphocytes Absolute Auto 2700 /uL (1100-4500); Lymphocytes Percent Auto 36.4 % (25-40); Mean Corpuscular HGB Conc 35.4 % (30-36); Mean Corpuscular Hemoglobin 31.3 PG (26-34); Mean Corpuscular Volume 88.6 fL (80-100); Monocytes Absolute Auto 700 /uL (0-900); Monocytes Percent Auto 9.6 % (3-14); Neutrophils Absolute Auto 3700 /uL (1500-7000); Neutrophils Percent Auto 50.4 % (50-75); Platelet Count 244 X10^3/uL (150-400); Red Blood Cell Count 4.57 X10^6/uL (4.0-5.2); Red Cell Distribution Width 13.3 % (11.6-14.8); White Blood Cell Count 7.3 X10^3/uL (4.5-11.0)
[2019-05-16 22:51] LABS: Alanine Aminotransferase 18 IU/L (9-52); Albumin 4.6 g/dL (3.5-5.0); Albumin Globulin Ratio 1.4 (1.0-2.8); Alkaline Phosphatase 73 U/L (38-126); Aspartate Aminotransferase 29 IU/L (14-36); BUN Creatinine Ratio 25.7 (6-22); Bilirubin Total 0.4 mg/dL (0.2-1.3); Blood Urea Nitrogen 18 mg/dL (7-17); Calcium 9.5 mg/dL (8.4-10.2); Carbon Dioxide 28 mmol/L (22-32); Chloride 102 mmol/L (98-107); Creatine Kinase 40 U/L (30-135); Estimated Glomerular Filt Rate > 60.0 mL/min (>60); Globulin 3.2 g/dL (1.7-4.1); Glucose 103 mg/dL (70-100); HEMOLYSIS 27 (0-50); Magnesium 1.9 mg/dL (1.6-2.3); Potassium 4.1 mmol/L (3.4-5.1); Sodium 138 mmol/L (137-145); Total Protein 7.8 g/dL (6.3-8.2)
[2019-05-16 22:53] LABS: Erythrocyte Sedimentation Rate 20 MM/HR (0-20)
[2019-05-16 23:02] LABS: Troponin I < 0.012 ng/mL (0.01-0.034)
--- NOTE | 2019-05-16 23:03 | ED.SOB ---
HPI - SOB/Dyspnea General Chief Complaint: Shortness of Breath/Dyspnea Stated Complaint: numb hands & feet, difficulty breathing Time Seen by Provider: 05/16/19 22:07 Source: patient Mode of arrival: Ambulatory Limitations: no limitations History of Present Illness HPI Narrative: 54F nonsmoker with history of breast cancer status post chemotherapy presents with her and a chief complaint 3-4 days shortness of breath while sleeping, she thinks it is worse when she lays flat but denies any exertional dyspnea. She denies any weight gain or lower extremity swelling. She denies any chest pain is not dizzy nor weak or lightheaded. Additionally she admits to numbness and tingling of her hands and feet which has been present for many years but seems to be worsening and moving more proximal. She denies any weakness of her lower extremities nor trouble with control of bowel or bladder. She denies any fever or chills but does states she had an upper respiratory infection a few weeks ago and flew to [place]. She denies other neurologic symptoms such as blurred vision, trouble with speech or difficulty with ambulation. Related Data Home Medications Medication Instructions Recorded Confirmed fexofenadine 180 mg PO Q DAY #0 07/07/11 03/20/18 MULTIVITAMIN 1 tab PO QDAY #0 tab 03/18/16 03/20/18 fluticasone propionate [Flonase 1 spray INTRANASAL QDAY #1 bot 03/18/16 03/20/18 Allergy Relief] ibuprofen 400 mg PO PRN #0 04/08/16 pseudoephedrine HCl 60 mg PO PRN PRN #0 04/08/16 VITAMIN D (Vitamin D3) 2,000 unit PO QDAY #0 05/20/16 03/20/18 [PROBIOTIC] Q DAY #0 05/20/16 albuterol sulfate [Ventolin HFA] 2 puff INH Q8H PRN 03/07/18 Previous Rx's Medication Instructions Recorded oxybutynin chloride 5 mg tablet 5 mg PO BID #180 tab 06/27/18 estradiol 1 vaginalrin VAGINAL Q 3 MONTHS #1 09/15/18 each Allergies Allergy/AdvReac Type Severity Reaction Status Date / Time codeine [CODEINE] Allergy Unknown vomiting Unverified 07/12/18 09:20 latex [LATEX] Allergy Unknown Unverified 07/12/18 09:20 Review of Systems Constitutional Constitutional: Denies chills, Denies fatigue, Denies fever(s), Denies frequent falls, Denies lethargy and Denies weakness Eyes Eyes: Denies change in vision, Denies eye discharge, Denies irritation and Denies loss of vision ENT Ears, Nose, Mouth, and Throat: Denies change in voice, Denies dizziness, Denies neck pain, Denies sore throat and Denies throat swelling Cardiovascular Cardiovascular: Denies chest pain, Denies irregular heart rhythm, Denies lightheadedness, Denies palpitations, Reports dyspnea, Denies dyspnea on exertion and Denies orthopnea Respiratory Respiratory: Denies cough, Reports dyspnea, Denies dyspnea on exertion and Denies wheezing Gastrointestinal Gastrointestinal: Denies abdominal pain, Denies change in bowel habits, Denies diarrhea, Denies nausea and Denies vomiting Genitourinary Genitourinary: Denies hematuria, Denies flank pain, Denies urinary incontinence and Denies urinary urgency Musculoskeletal Musculoskeletal: Denies back pain, Denies muscle weakness, Denies neck pain, Denies numbness and Denies tingling Integumentary/Breasts Skin/Breast: Denies pruritus, Denies erythema, Denies rash and Denies wounds Neurologic Neurologic: Denies behavioral changes, Denies confusion, Denies dizziness, Denies frequent falls, Denies loss of vision, Denies numbness, Denies tingling, Reports paresthesias and Denies weakness Psychiatric Psychiatric: Denies anxiety, Denies behavioral changes, Denies confusion, Denies depression, Denies homicidal ideation and Denies suicidal ideation Endocrine Endocrine: Denies fatigue, Denies flushing and Denies palpitations Hematologic/Lymphatic Hematologic/Lymphatic: Denies easy bruising Allergic/Immunologic Allergic/Immunologic: Denies urticaria, Denies throat swelling and Denies wheezing Patient History Medical History Anxiety (Chronic) Arthritis (Chronic) Breast cancer, left breast (Resolved 01/2016) Chronic headaches (Chronic) Constipation (Chronic) Cough (Chronic) Edema (Chronic) Hypertension (Chronic) Low blood sugar (Chronic) Menopause (Resolved 2009) Metabolic syndrome (Chronic) Neuropathy of left hand (Chronic) Overactive bladder (Chronic) Pneumonia (Resolved) Sinus problem (Chronic) SOB (shortness of breath) (Chronic) Surgical History Anesthesia complication (Resolved) History of bilateral mastectomy (Resolved 04/21/16) History of bilateral salpingectomy (Resolved 08/18/10) History of bone marrow biopsy (Resolved 08/10/16) History of colonoscopy (Resolved 03/28/18) History of dilation and curettage (Resolved 08/18/10) History of endometrial ablation (Resolved 08/18/10) History of reconstruction of both breasts (Resolved 2016) History of reconstruction of both breasts (Resolved 2017) History of removal of Port-a-Cath (Resolved 12/08/16) History of third molar tooth extraction (Resolved) History of varicose vein stripping (Resolved 2000) Status post delivery (Resolved 02/14/97) Status post tonsillectomy and adenoidectomy (Resolved 1993) Family History Mother Heart disease Father No problems noted. Social History household members: spouse Smoking Status: Never smoker Family History Mother Heart disease Father No problems noted. Social History household members: spouse Smoking Status: Never smoker alcohol intake frequency: a few times a month Substance Use Type: does not use Exam Narrative Exam Narrative: GENERAL: [54] year old patient appears stated age. Well-nourished, well-developed patient, in mild distress. Obviously quite anxious HEAD: Atraumatic. Normocephalic. EYES: Pupils equal round and reactive. Extraocular motions intact. No scleral icterus. No injection or drainage. ENT: Nose without bleeding, purulent drainage. Throat without erythema, tonsillar hypertrophy or exudate. Airway patent. NECK: Trachea midline. Non tender CARDIOVASCULAR: Regular rate and rhythm without murmurs, gallops, or rubs. RESPIRATORY: Clear to auscultation. Breath sounds equal bilaterally. No wheezes, rales, or rhonchi. GASTROINTESTINAL: Abdomen soft, non-tender, nondistended. EXTREMITIES: No edema or joint tenderness. BACK: Nontender without deformity or crepitance. No flank tenderness. NEURO: AOx3. 1+ patellar reflexes B/L SKIN: No rash or erythema of visible areas NIH Stroke Scale 1a. LOC: Patient is alert and keenly responsive (0) 1b. LOC Questions: Patient answers both LOC questions accurately (0) 1c. LOC Commands: Patient performs both tasks correctly (0) 2. Best Gaze: Normal (0) 3. Visual: No visual loss (0) 4. Facial palsy: Normal symmetrical movements (0) 5. Motor arm: No drift (0) 6. Motor leg: No drift (0) 7. Limb ataxia: Absent (0) 8. Sensory: Normal (0) 9. Best language: No aphasia; normal (0) 10. Dysarthria: Normal (0) 11. Extinction and inattention: No abnormality (0) NIHSS: 0 Initial Vital Signs Initial Vital Signs: Vital Signs Temperature 98 F 05/16/19 22:21 Pulse Rate 68 05/16/19 22:21 Respiratory Rate 20 05/16/19 22:21 Blood Pressure 148/86 H 05/16/19 22:21 Pulse Oximetry 98 05/16/19 22:21 Course Orders Ordered: ED Orders 05/16/19 22:20 CT head/brain wo con Stat XR chest 1V Stat EKG-12 Lead Stat 05/16/19 22:23 B Type Natriuretic Peptide Stat 05/16/19 22:30 C-Reactive Protein Quant Stat Complete Blood Count AUTO DIFF Stat Comprehensive Metabolic Panel Stat Erythrocyte Sedimentation Rate Stat Magnesium Stat Procalcitonin Stat Troponin & CK Cardiac Panel Stat Vital Signs Vital signs: Vital Signs - 8 hr 05/16/19 22:21 05/16/19 23:06 05/17/19 00:24 Temperature 98 F Pulse Rate 68 52 L 76 Respiratory Rate 20 16 18 Blood Pressure 148/86 H 140/80 Blood Pressure [Right Arm] 126/84 Pulse Oximetry 98 96 99 MDM - SOB/Dyspnea Lab Data Result diagrams: 05/16/19 22:30 05/16/19 22:30 Labs: Lab Results 05/16/19 05/16/19 05/16/19 Range/Units 22:23 22:30 22:30 WBC 7.3 (4.5-11.0) X10^3/uL RBC 4.57 (4.0-5.2) X10^6/uL Hgb 14.3 (12.0-16.0) g/dL Hct 40.5 (36-46) % MCV 88.6 (80-100) fL MCH 31.3 (26-34) PG MCHC 35.4 (30-36) % RDW 13.3 (11.6-14.8) % Plt Count 244 (150-400) X10^3/uL Neut % (Auto) 50.4 (50-75) % Lymph % (Auto) 36.4 (25-40) % [place] % (Auto) 9.6 (3-14) % Eos % (Auto) 3.0 (2-4) % Baso % (Auto) 0.6 (0-2) % Neut # (Auto) 3700 (2766-8322) /uL Lymph # (Auto) 2700 (6750-3235) /uL [place] # (Auto) 700 (0-900) /uL Eos # (Auto) 200 (0-450) /uL Baso # (Auto) 0 (0-100) /uL ESR 20 (0-20) MM/HR Sodium 138 (137-145) mmol/L Potassium 4.1 (3.4-5.1) mmol/L Chloride 102 (98-107) mmol/L Carbon Dioxide 28 (22-32) mmol/L BUN 18 H (7-17) mg/dL Creatinine 0.70 (0.52-1.04) mg/dL Estimated GFR > 60.0 (>60) mL/min BUN/Creatinine Ratio 25.7 H (6-22) Glucose 103 H (70-100) mg/dL Calcium 9.5 (8.4-10.2) mg/dL Magnesium 1.9 (1.6-2.3) mg/dL Total Bilirubin 0.4 (0.2-1.3) mg/dL AST 29 (14-36) IU/L ALT 18 (9-52) IU/L Alkaline Phosphatase 73 (38-126) U/L Total Creatine Kinase 40 (30-135) U/L CK-MB (CK-2) TNP CK-MB (CK-2) Rel Index TNP Troponin I < 0.012 (0.01-0.034) ng/mL C-Reactive Protein 0.9 (<1.0) mg/dL B-Natriuretic Peptide < 100 (<100) Total Protein 7.8 (6.3-8.2) g/dL Albumin 4.6 (3.5-5.0) g/dL Globulin 3.2 (1.7-4.1) g/dL Albumin/Globulin Ratio 1.4 (1.0-2.8) Procalcitonin (<0.5) ng/mL 05/16/19 Range/Units 22:30 WBC (4.5-11.0) X10^3/uL RBC (4.0-5.2) X10^6/uL Hgb (12.0-16.0) g/dL Hct (36-46) % MCV (80-100) fL MCH (26-34) PG MCHC (30-36) % RDW (11.6-14.8) % Plt Count (150-400) X10^3/uL Neut % (Auto) (50-75) % Lymph % (Auto) (25-40) % [place] % (Auto) (3-14) % Eos % (Auto) (2-4) % Baso % (Auto) (0-2) % Neut # (Auto) (2774-1282) /uL Lymph # (Auto) (6063-4417) /uL [place] # (Auto) (0-900) /uL Eos # (Auto) (0-450) /uL Baso # (Auto) (0-100) /uL ESR (0-20) MM/HR Sodium (137-145) mmol/L Potassium (3.4-5.1) mmol/L Chloride (98-107) mmol/L Carbon Dioxide (22-32) mmol/L BUN (7-17) mg/dL Creatinine (0.52-1.04) mg/dL Estimated GFR (>60) mL/min BUN/Creatinine Ratio (6-22) Glucose (70-100) mg/dL Calcium (8.4-10.2) mg/dL Magnesium (1.6-2.3) mg/dL Total Bilirubin (0.2-1.3) mg/dL AST (14-36) IU/L ALT (9-52) IU/L Alkaline Phosphatase (38-126) U/L Total Creatine Kinase (30-135) U/L CK-MB (CK-2) CK-MB (CK-2) Rel Index Troponin I (0.01-0.034) ng/mL C-Reactive Protein (<1.0) mg/dL B-Natriuretic Peptide (<100) Total Protein (6.3-8.2) g/dL Albumin (3.5-5.0) g/dL Globulin (1.7-4.1) g/dL Albumin/Globulin Ratio (1.0-2.8) Procalcitonin < 0.05 (<0.5) ng/mL Imaging Data CT scan - head: Radiologist's impression: [facility] Narrative Medical decision making narrative: 54-year-old female with multiple years of bilateral extremity numbness and tingling states that she feels like that numbness and tingling is more intense, persistent and is working up her extremities recently. She states that for the last few nights she has woken up in the middle night and felt quite short of breath and that it takes some time being up and about for the day before her symptoms started to resolve. She has a very reassuring physical exam and workup. We did discuss doing a lumbar puncture on the very off chance that this is a incredibly atypical presentation of Guillain-[place] but in the end elected not to and she will follow up with her primary care provider. Discharge Plan Departure Patient Disposition: Home Clinical Impression: Paresthesias/numbness Discharge Date/Time: 05/17/19 00:26 Instructions: DI for Numbness/tingling Activity Restrictions/Additional Instructions: *You have been diagnosed with [acute on chronic bilateral upper and lower extremity paresthesias] *What to do: *Take medications as directed *Follow up with your primary care provider in 2-3 days, call for an appointment. Let them know you were seen in the Emergency Department and that we ask that you be seen in follow up. It may be worth considering the possibility of an MRI of your head and spine to evaluate for these ongoing problems *Return to ER if you should have any new, worsening or concerning symptoms, such as [worsening numbness, weakness, more difficulty with breathing or other bothersome symptoms] Prescriptions: No Action fexofenadine 180 MG tablet 180 mg PO Q DAY Qty: 0 RF: 0 fluticasone propionate [Flonase Allergy Relief] 9.9 ML spray,suspension 1 spray Intranasal QDAY Qty: 1 RF: 0 MULTIVITAMIN 1 tab PO QDAY Qty: 0 RF: 0 ibuprofen 400 MG tablet 400 mg PO PRNQty: 0 RF: 0 pseudoephedrine HCl 30 MG tablet 60 mg PO PRN PRNQty: 0 RF: 0 [PROBIOTIC] Q DAY Qty: 0 RF: 0 VITAMIN D (Vitamin D3) 2,000 unit PO QDAY Qty: 0 RF: 0 oxybutynin chloride 5 mg tablet 5 mg PO BID Qty: 180 RF: 3 Estring 2 mg (7.5 mcg /24 hour) ring 1 vaginalrin Vaginal Q 3 MONTHS Qty: 1 RF: 3 albuterol sulfate [Ventolin HFA] 90 MCG/PUFF HFA aerosol inhaler 2 puff INH Q8H PRN (Reason: Allergy Symptoms) RF: 0 Referrals: Avtar Corbett MD [Primary Care Provider] -
[2019-05-16 23:05] LABS: Procalcitonin < 0.05 ng/mL (<0.5)
[2019-05-16 23:06] VITALS: BP 126/84; PULSE 52; RESP 16; O2SAT 96
[2019-05-16 23:14] LABS: C-Reactive Protein Quant 0.9 mg/dL (<1.0)
[2019-05-16 23:36] LABS: B Type Natriuretic Peptide < 100 (<100)
[2019-05-17 00:24] VITALS: BP 140/80; PULSE 76; RESP 18; O2SAT 99
== END 2019-05-17 00:26 | disposition home or self-care (01) ==
PROVIDERS: Emergency Provider Emergency Medicine; PCP Internal Medicine
DX: R20.2 Paresthesia of skin (principal); R07.9 Chest pain, unspecified
CPT/HCPCS: 36415; 70450; 71045; 80053; 82550; 83735; 83880; 84145; 84484; 85025; 85651; 86140; 99282; 99285

== ENCOUNTER → 2019-05-25 19:23 | Outpatient (CLI) | payer OTHER, SELFPAY ==
--- NOTE | 2019-05-25 19:26 | DI.MRI.S_ITS ---
PROCEDURE: MR CERVICAL SPINE WO CON INDICATIONS: PARESTHESIA OF SKIN TECHNIQUE: Noncontrast sagittal T1 spin echo and T2 fast spin echo, sagittal STIR, foraminal oblique sagittal T2 fast spin echo, and axial gradient echo or T2 fast spin echo through the cervical spine. COMPARISON: None. FINDINGS: Image quality: Excellent. Alignment and Curvature: There is normal bony alignment. Bone Marrow: Marrow demonstrates normal overall signal. Spinal Cord: Visualized spinal cord has normal size and signal. No cerebellar tonsillar herniation. Paraspinous Soft Tissues: No paravertebral masses. Prevertebral soft tissues are normal in thickness. C2-C3: Normal appearance. C3-C4: Slight loss of disc signal. No central stenosis. No neural foraminal narrowing. No neural compression. C4-C5: Loss of the signal. Mild, diffuse disc bulge. Mild bilateral facet hypertrophy. Mild narrowing of the central canal. Mild right uncovertebral joint hypertrophy. Mild right neural foraminal narrowing. No neural compression. Posterior anulus tear is noted. C5-C6: Loss of disc signal and height. Mild diffuse disc bulge with small central disc protrusion. Mild to moderate narrowing of the central canal. Mild bilateral facet hypertrophy. Mild bilateral uncovertebral joint hypertrophy. Moderate right and severe left neural foraminal narrowing with compression of the exiting left C6 nerve root. C6-C7: Loss of the signal. Mild to moderate diffuse disc bulge. Mild narrowing of the central canal. Mild bilateral facet hypertrophy. Mild right uncovertebral joint hypertrophy. Mild right neural foraminal narrowing. No neural compression. C7-T1: Normal appearance. IMPRESSION: 1. Multilevel degenerative disease. 2. Multilevel facet and uncovertebral arthropathy. 3. Mild to moderate C5-C6 Central canal narrowing. Mild C4-C5 and C6-C7 central canal narrowing. 4. Moderate right and severe left C5-C6 neural foraminal narrowing. Moderate right C4-C5 and C6-C7 neural foraminal narrowing. High-grade compression of the exiting left C6 nerve root secondary to left C5-C6 neural foraminal stenosis. Please correlate with clinical data. Dictated by: Megha Snider MD, PhD on 05/28/2019 at 8:39 Approved by: Megha Snider MD, PhD on 05/28/2019 at 9:47
== END ==
PROVIDERS: PCP Internal Medicine; Visit Provider Internal Medicine
DX: R20.2 Paresthesia of skin (principal); M50.321 Other cervical disc degeneration at C4-C5 level; M47.812 Spondylosis without myelopathy or radiculopathy, cervical region; M48.02 Spinal stenosis, cervical region
CPT/HCPCS: 72141

== ENCOUNTER → 2019-07-05 12:58 | Outpatient (ROUT) | payer OTHER, SELFPAY ==
[2019-07-05 19:32] LABS: BUN Creatinine Ratio 18.8 (6-22); Blood Urea Nitrogen 15 mg/dL (7-17); Calcium 9.7 mg/dL (8.4-10.2); Carbon Dioxide 27 mmol/L (22-32); Chloride 104 mmol/L (98-107); Estimated Glomerular Filt Rate > 60.0 mL/min (>60); Glucose 94 mg/dL (70-100); HEMOLYSIS < 15 (0-50); Potassium 4.2 mmol/L (3.4-5.1); Sodium 140 mmol/L (137-145)
== END ==
PROVIDERS: PCP Internal Medicine; Visit Provider Internal Medicine
DX: I50.22 Chronic systolic (congestive) heart failure (principal)
CPT/HCPCS: 80048; 83735

== ENCOUNTER → 2019-08-17 14:05 | Outpatient (CLI) | payer OTHER, SELFPAY ==
[2019-08-17 14:46] LABS: Add Manual Diff / Slide Review NO; Basophils Absolute Auto 0 /uL (0-100); Basophils Percent Auto 0.8 % (0-2); Eosinophils Absolute Auto 200 /uL (0-450); Eosinophils Percent Auto 2.7 % (2-4); Hematocrit 40.1 % (36-46); Hemoglobin 13.8 g/dL (12.0-16.0); Lymphocytes Absolute Auto 1700 /uL (1100-4500); Lymphocytes Percent Auto 30.8 % (25-40); Mean Corpuscular HGB Conc 34.5 % (30-36); Mean Corpuscular Hemoglobin 31.2 PG (26-34); Mean Corpuscular Volume 90.4 fL (80-100); Monocytes Absolute Auto 500 /uL (0-900); Monocytes Percent Auto 8.2 % (3-14); Neutrophils Absolute Auto 3200 /uL (1500-7000); Neutrophils Percent Auto 57.5 % (50-75); Platelet Count 238 X10^3/uL (150-400); Red Blood Cell Count 4.43 X10^6/uL (4.0-5.2); Red Cell Distribution Width 13.2 % (11.6-14.8); White Blood Cell Count 5.6 X10^3/uL (4.5-11.0)
[2019-08-17 14:58] LABS: Alanine Aminotransferase 15 IU/L (<35); Albumin 4.6 g/dL (3.5-5.0); Albumin Globulin Ratio 1.5 (1.0-2.8); Alkaline Phosphatase 68 U/L (38-126); Aspartate Aminotransferase 25 IU/L (14-36); BUN Creatinine Ratio 25.7 (6-22); Bilirubin Total 0.4 mg/dL (0.2-1.3); Blood Urea Nitrogen 18 mg/dL (7-17); Calcium 9.7 mg/dL (8.4-10.2); Carbon Dioxide 28 mmol/L (22-32); Chloride 104 mmol/L (98-107); Estimated Glomerular Filt Rate > 60.0 mL/min (>60); Globulin 3.1 g/dL (1.7-4.1); Glucose 97 mg/dL (70-100); HEMOLYSIS < 15 (0-50); Potassium 3.7 mmol/L (3.4-5.1); Sodium 141 mmol/L (137-145); Total Protein 7.7 g/dL (6.3-8.2)
[2019-08-17 15:11] LABS: B Type Natriuretic Peptide < 100 (<100)
[2019-08-17 15:27] LABS: Thyroid Stimulating Hormone 1.62 uIU/mL (0.47-4.68)
== END ==
PROVIDERS: Family Provider Internal Medicine; PCP Internal Medicine; Visit Provider Internal Medicine Cardiovascular Disease
DX: I50.9 Heart failure, unspecified (principal); I42.7 Cardiomyopathy due to drug and external agent
CPT/HCPCS: 36415; 80053; 83880; 84443; 85025

== ENCOUNTER → 2019-09-11 08:47 | Outpatient (CLI) | payer OTHER, SELFPAY ==
--- NOTE | 2019-09-14 16:18 | PM.PFT.1 ---
Pulmonary Function Test Referral & Results Date Patient Seen: 09/11/19 Requesting provider: Praveen Gill Results: The spirometry demonstrates an FVC of 3.55 L which is 102% of predicted. The FEV1 was measured at 3.08 L which is 112% of predicted. The FEV1/FVC ratio was 87 which is 108% of predicted. Following the administration of bronchodilator there was no appreciable change to above normal numbers. Lung volumes show an SVC of 3.53 L which is 110% of predicted. The diffusing capacity was measured at 21.55 which is 88% of predicted. The maximum voluntary ventilation was minimally reduced Interpretation: This study demonstrates normal pulmonary function
== END ==
PROVIDERS: Family Provider Internal Medicine; PCP Internal Medicine; Referring Provider Internal Medicine Critical Care Medicine; Visit Provider Internal Medicine Critical Care Medicine
DX: R06.02 Shortness of breath (principal)
CPT/HCPCS: 94060; 94726; 94729

== ENCOUNTER → 2019-09-25 07:49 | Outpatient (CLI) | payer OTHER, SELFPAY ==
--- NOTE | 2019-09-25 07:52 | DI.NM.S_ITS ---
PROCEDURE: [place] BONE SCAN WHOLE BODY RADIOPHARMACEUTICAL: 20.6 mCi Tc-99m MDP IV. INDICATIONS: breast cancer restaging TECHNIQUE: Delayed whole-body scintigrams were obtained approximately 3-4 hours after intravenous injection of radiotracer. Anterior and posterior views were acquired from vertex to feet. Additional left and right oblique views of the spine were obtained. COMPARISON: [place], [place], BONE SCAN WHOLE BODY, 03/29/2016, 15:16. FINDINGS: Through the axial and appendicular skeleton there is no focus of suspected metastatic disease. Again noted is asymmetric left greater than right a.c. joint osteoarthritis and also focal asymmetric isotope uptake seen within the left hindfoot on posterior imaging. IMPRESSION: No metastatic disease seen. Osteoarthritic change of the shoulders. Left hindfoot asymmetric focus of increased isotope deposition was previously present, and also presumably is degenerative in origin. Comparison study was from 03/29/16. Dictated by: Guanaco Alvarado M.D. on 09/25/2019 at 14:07 Approved by: Guanaco Alvarado M.D. on 09/25/2019 at 14:09
--- NOTE | 2019-09-25 07:52 | DI.CT.S_ITS ---
PROCEDURE: CT HEAD/BRAIN W CON INDICATIONS: breast cancer restaging TECHNIQUE: 4.5 mm thick angled axial sections acquired from the foramen magnum to the vertex after the administration of intravenous contrast, with coronal and sagittal reformats. For radiation dose reduction, the following was used: automated exposure control, adjustment of mA and/or kV according to patient size. COMPARISON: [facility], CT, CT HEAD/BRAIN WO CON, 05/16/2019, 22:39. [facility], CT, HEAD WITHOUT CONTRAST, 06/21/2013, 13:45. [facility], CT, CT CHEST ABD PEL W CON, 09/25/2019, 8:52. FINDINGS: Image quality: Excellent. CSF Spaces: Basal cisterns are patent. No extra-axial fluid collections. Ventricles are normal in size and shape. Brain: No midline shift. No intracranial bleeds or masses. No abnormal intracranial enhancement. Clifford-white interface appears normal. Minimally low lying cerebellar tonsils are again seen. Skull and face: Calvarium and visualized facial bones appear intact, without suspicious lesions. Sinuses: Visualized sinuses and mastoids are clear. IMPRESSION: To the limits of CT, no findings of masses or abnormal intracranial enhancement can be seen. Dictated by: Chacho Walker M.D. on 09/25/2019 at 8:44 Approved by: Chacho Walker M.D. on 09/25/2019 at 8:46
--- NOTE | 2019-09-25 07:52 | DI.CT.S_ITS ---
PROCEDURE: CT CHEST ABD PEL W CON INDICATIONS: breast cancer restaging TECHNIQUE: After the administration of oral and intravenous contrast, 5 mm thick sections acquired from the lung apices to the symphysis. 5 mm coronal and sagittal reformats were performed, with additional 7 mm coronal MIP reformats through the lungs. For radiation dose reduction, the following was used: automated exposure control, adjustment of mA and/or kV according to patient size. COMPARISON: [facility], [place], [place] BONE SCAN WHOLE BODY, 09/25/2019, 11:19. [facility], CT, CHEST/ABD/PEL WITH CONTRAST, 03/29/2016, 12:35. FINDINGS: Image quality: Excellent. CHEST: Lungs and pleura: In the posterior right lower lobe, there is a stable 3 mm nodule on series 6 image 206. A small left residual nodule measuring approximately 1 mm on series 6 image 192 appears stable compared to the prior study. There is mild nodular thickening along the right major fissure measuring up to 7 mm on image 181 which appear slightly increased compared to the prior study there is also a small focus of nodular thickening along the right major fissure measuring up to 3 mm on image 197 which appears minimally increased compared to the prior study.. No pleural effusions or pneumothorax. Central and peripheral airways appear patent and normal in caliber. Mediastinum: Heart size is normal. No pericardial effusion. No mediastinal or hilar adenopathy by size criteria. Thoracic aorta and central pulmonary arteries are normal in size. Esophagus is normal in caliber. No hiatal hernia. Chest wall: There are bilateral breast implants which appear intact. No axillary or supraclavicular adenopathy by size criteria. Thyroid gland demonstrates a nodule in the left lobe measuring up to approximately 1.2 cm which appears increased in prominence compared to the prior study. ABDOMEN: Solid organs: Evaluation of the liver demonstrates no focal hepatic lesions. The gallbladder appears within normal limits without calcified gallstones. Biliary system is non-dilated. Pancreas enhances normally. No peripancreatic fat stranding or fluid collections. No pancreatic duct dilatation. The spleen is normal in size. No adrenal nodules. Kidneys demonstrate no hydronephrosis. Peritoneum and bowel: Bowel loops demonstrate normal wall thickness and caliber. There is colonic diverticulosis without acute diverticulitis. No free fluid or air. Nodes and vessels: No retroperitoneal or mesenteric adenopathy by size criteria. Aorta and inferior vena cava are normal in size. Miscellaneous: No ventral hernias. PELVIS: Genitourinary: Bladder wall thickness is normal. A pessary ring is noted. Miscellaneous: No inguinal hernias or adenopathy. Bones: No suspicious bony lesions. No vertebral body compression fractures. IMPRESSION: 1. Small foci of nodular thickening along the right major fissure appears slightly increased in prominence from the prior study. The findings are suggestive of intrapulmonary lymph nodes and are likely reactive. However, followup is recommended in 12 months to demonstrate stability if clinically indicated. 2. Elsewhere, no definite evidence of metastatic disease. 3. Nonspecific left thyroid nodule appears increased in prominence. Further evaluation may be obtained with ultrasound. Dictated by: Malcom Houston M.D. on 09/25/2019 at 15:59 Approved by: Malcom Houston M.D. on 09/25/2019 at 16:08
== END ==
PROVIDERS: Family Provider Internal Medicine; PCP Internal Medicine; Referring Provider Internal Medicine Hematology & Oncology; Visit Provider Internal Medicine Hematology & Oncology
DX: C50.912 Malignant neoplasm of unspecified site of left female breast (principal); E04.1 Nontoxic single thyroid nodule; M19.011 Primary osteoarthritis, right shoulder; M19.012 Primary osteoarthritis, left shoulder
CPT/HCPCS: 70460; 71260; 74177; 78306; A9503; Q9967

== ENCOUNTER → 2020-02-04 17:03 | Outpatient (CLI) | payer OTHER, SELFPAY ==
--- NOTE | 2020-02-04 | DI.MRI.S_ITS ---
PROCEDURE: MR LUMBAR SPINE WO CON INDICATIONS: Low back and left hip pain. Left leg numbness TECHNIQUE: Noncontrast sagittal T1 spin echo and T2 fast echo, sagittal STIR, axial T1 and T2 fast spin echo through the lumbar spine. In cases with scoliosis, additional coronal T2 fast spin echo may be performed. COMPARISON: [facility], RG, XR L-SPINE 2-3V, 07/11/2015, 14:36. FINDINGS: Image quality: Excellent. Alignment and Curvature: 5 lumbar type vertebral bodies are present by plain film. There is loss of normal lumbar lordosis. Bone Marrow: Marrow is of normal overall signal. No acute vertebral body compression fractures. Minimal reactive signal within the endplates adjacent to the L2-L3 intervertebral disc. Spinal Cord: Conus medullaris terminates at the mid L1 level. Visualized cord demonstrates normal signal and size. Paraspinous Soft Tissues: No paravertebral masses. L1-L2: Normal appearance. L2-L3: Mild disc height loss and desiccation. Mild diffuse disc bulge. Mild canal stenosis. Mild left right foraminal stenosis. L3-L4: Mild disc height loss and desiccation. Mild diffuse disc bulge. Minimal canal stenosis. Mild left greater than right foraminal stenosis. L4-L5: Mild facet and ligamentum flavum hypertrophy. No significant canal, nor foraminal stenosis. L5-S1: No significant canal, nor foraminal stenosis. IMPRESSION: 1. Multilevel degenerative disc and facet disease, as well as ligamentum flavum hypertrophy and epidural lipomatosis causing mild canal and foraminal stenoses. No neural impingement. Dictated by: Ronald Dixon M.D. on 02/05/2020 at 8:59 Approved by: Ronald Dixon M.D. on 02/05/2020 at 9:05
== END ==
PROVIDERS: Family Provider Internal Medicine; PCP Internal Medicine; Referring Provider Psychiatry & Neurology Neurology; Visit Provider Psychiatry & Neurology Neurology
DX: M51.16 Intervertebral disc disorders with radiculopathy, lumbar region (principal); M54.5 Low back pain; M48.061 Spinal stenosis, lumbar region without neurogenic claudication; M25.552 Pain in left hip; R20.0 Anesthesia of skin; E88.2 Lipomatosis, not elsewhere classified
CPT/HCPCS: 72148

== ENCOUNTER → 2020-02-13 14:25 | Outpatient (CLI) | payer OTHER, SELFPAY ==
--- NOTE | 2020-02-13 14:29 | DI.RAD.S_ITS ---
PROCEDURE: XR LUMBAR SPINE MIN 4V INDICATIONS: Axial low back pain TECHNIQUE: 5 views of the lumbar spine acquired. COMPARISON: [facility], CT, CT CHEST ABD PEL W CON, 09/25/2019, 8:52. FINDINGS: Bones: 5 nonrib-bearing vertebrae are present. There is normal bony alignment. No vertebral body compression fractures. No suspicious bony lesions. Mild multilevel disc degeneration and Mild facet joint arthropathy at the L5-S1 level. No pars interarticularis defects. Soft tissues: Overlying bowel gas pattern is normal. No suspicious soft tissue calcifications. IMPRESSION: Multilevel spondylosis. Dictated by: Giorgio Schmid [facility] Interpreted: Chuy Grimaldo MD on 02/13/2020 at 14:46 Approved by: Chuy Grimaldo M.D. on 02/13/2020 at 14:50
== END ==
PROVIDERS: Family Provider Internal Medicine; PCP Internal Medicine; Referring Provider Physical Medicine & Rehabilitation; Visit Provider Physical Medicine & Rehabilitation
DX: M54.5 Low back pain (principal); M47.816 Spondylosis without myelopathy or radiculopathy, lumbar region; M47.817 Spondylosis without myelopathy or radiculopathy, lumbosacral region
CPT/HCPCS: 72110

== ENCOUNTER → 2020-04-05 08:27 | Outpatient (CLI) | payer OTHER, SELFPAY ==
[2020-04-07 12:04] LABS: COVID19 Sendout Not Detected (Not Detect)
== END ==
PROVIDERS: Family Provider Internal Medicine; PCP Internal Medicine; Visit Provider Physician Assistant
DX: Z11.59 Encounter for screening for other viral diseases (principal)
CPT/HCPCS: 87635

== ENCOUNTER 2020-04-08 08:14 | Outpatient (CLI) | payer OTHER, SELFPAY ==
[2020-04-08] VITALS (9 sets, daily range): BP systolic 108–145; BP diastolic 65–82; PULSE 50–67; RESP 14–20; TEMP 36.2; O2SAT 93–100
--- NOTE | 2020-04-08 08:18 | DI.RAD.S_ITS ---
PROCEDURE: PAIN L/S FACET INJ/BLK 1ST DEBORAH COMPARISON: None. INDICATIONS: SPONDYLOSIS FINDINGS: Fluoroscopic spot filming was performed to verify placement of spinal needles at the L4-L5, L5-S1 level(s), as labeled on the films. Appropriate location(s) of the needle tip(s) was confirmed by injection of iodinated contrast. Dictated by: Pernell Koroma M.D. on 04/08/2020 at 11:02 Approved by: Pernell Koroma M.D. on 04/08/2020 at 11:03
[2020-04-08] MEDS: MIDAZOLAM 5 MG/5 ML VIAL IV (09:05)
[2020-04-08] MEDS: fentaNYL 100 MCG/2 ML INJ 50 MCG IV (09:05)
[2020-04-08] MEDS: BETAMETHASONE 30 MG/5 ML MDV 12 MG INJ (09:09)
[2020-04-08] MEDS: LIDOCAINE 1% 20 ML 10 ML INJ (09:10)
[2020-04-08] MEDS: BUPIVACAINE 0.5% (PF) VIAL 5 ML INJ (09:10)
[2020-04-08] MEDS: IOPAMIDOL 15 ML VIAL 3 ML INJ (09:10)
--- NOTE | 2020-04-08 09:25 | P.PCN_ITS ---
Date/Time/Diagnoses Date of procedure: 04/08/20 Time of procedure: 09:25 Pre-procedure diagnosis: 1. FACET ARTHROPATHY 2. AXIAL LBP 3. MULTILEVEL DDD Post-procedure diagnosis: same Procedure Notes Procedure: 1. FLUOROSCOPICALLY GUIDED CONTRAST CONTROLLED FACET JOINT INJECTIONS BILATERAL L4/5, L5/S1 Indications: Sarah is referred by for treatment of Axial LBP Physician: Albert Schultz Total Fluoroscopy time (seconds): 12 Total sedation minutes: 15 Complications: none Procedure in detail & Post-procedure care: FINDINGS Multilevel Facet Arthropathy with Clinically significant axial LBP DESCRIPTION OF PROCEDURE Fluoroscopically guided, contrast-controlled bilateral L4/5, L5/S1 facet joint injections. Following review of allergy and review of potential side effects and complications, including, but not necessarily limited to, infection, allergic reaction, local tissue breakdown, stroke, temporary or permanent nerve injury, paralysis, and possible , the patient indicated that the patient understood and agreed to proceed. An informed consent document was signed by the patient, witnessed by a nurse, and placed in the patient's chart. Additionally, other treatment options including medications, modalities, and physical therapy were reviewed with the patient. After review of previous anaesthesic history and IV conscious sedation the patient was deemed safe to proceed with today?s procedure with IV conscious sedation as ASA class II designation. Safety time-out was performed to confirm patient ID, procedure to be performed and site of procedure. IV sedation was accomplished with a combination of 2mg of Versed and 50mcg of Fentanyl was administered by the RN after DO order, titrated to patient comfort during the course of the procedure while the patient remained responsive to all verbal commands In the prone position, following sterile prep and drape of the lumbar region, the posterior aspect of the L4/5, L5/S1 facet joints were identified fluoroscopically. The skin was anesthetized via a 25-gauge 1.5inch needle with 1% lidocaine solution into the corresponding facet joints. At this point, a 22- gauge 3.5-inch spinal needle was atraumatically introduced and advanced under fluoroscopic guidance into the corresponding facet joints. Following negative aspiration, injections of approximately 0.2cc of Isovue 200 confirmed intera rticular placement without vascular uptake. The identical procedure was then performed at the L4/5, L5/S1 facet joints on the left. Radiological data, including multiple fluoroscopic views of the lumbosacral spine, reveal a spinal needle at the L4/5, L5/S1 facet joints bilaterally. Subsequent views show flow of contrast material both superiorly and inferiorly within the joint space without vascular or intrathecal uptake. At this point, a total of 0.5cc including a mixture of 0.25cc Marcaine and 0.25cc betamethasone was injected without complication into each of the corresponding facet joints. The patient tolerated the procedure well without signs or symptoms of complications prior to transfer to the recovery area continued monitoring without incident. The patient was then transferred to the recovery area where they were observed for an appropriate period of time after the injection. The patient reported a VAS score of 7 prior to the procedure and a post- procedure VAS of 0. POST OP INSTRUCTIONS The patient was provided a Pain Log to continue to record their response to the target-specific procedure prior to follow-up visit with their referring physician. Additionally, specific post-injection care instructions and a contact number to our office were provided if concerns arise regarding possible complications associated with the procedure are suspected.
== END 2020-04-08 09:41 | disposition home or self-care (01) ==
LOC: RAD 08:15
PROVIDERS: Family Provider Internal Medicine; PCP Internal Medicine; Referring Provider Internal Medicine; Visit Provider Physical Medicine & Rehabilitation
DX: M47.816 Spondylosis without myelopathy or radiculopathy, lumbar region (principal); M47.817 Spondylosis without myelopathy or radiculopathy, lumbosacral region; M54.5 Low back pain; M51.36 Other intervertebral disc degeneration, lumbar region; M51.37 Other intervertebral disc degeneration, lumbosacral region
CPT/HCPCS: 64493; 64494; 99152; J0702; J2250; J3010

== ENCOUNTER → 2020-06-16 15:18 | Outpatient (CLI) | payer OTHER, SELFPAY ==
--- NOTE | 2020-06-16 15:20 | DI.RAD.S_ITS ---
PROCEDURE: XR CERVICAL SPINE 4V OR 5V INDICATIONS: Left C6 radiculopathy TECHNIQUE: 5 views of the cervical spine acquired. COMPARISON: None. FINDINGS: Bones: No fracture. Multilevel degenerative endplate sclerosis and spurring. Diffuse facet arthropathy. Moderate narrowing of the C5-C6 disc space. Mild left C5-C6 bony foraminal narrowing. No right-sided bony foraminal stenosis. Soft tissues: No prevertebral soft tissue swelling. IMPRESSION: Moderate C5-C6 disc degeneration. Mild left C5-C6 bony foraminal stenosis. Dictated by: Pernell Koroma M.D. on 06/16/2020 at 16:50 Approved by: Pernell Koroma M.D. on 06/16/2020 at 16:52
== END ==
PROVIDERS: Family Provider Internal Medicine; PCP Family Medicine; Referring Provider Physical Medicine & Rehabilitation; Visit Provider Physical Medicine & Rehabilitation
DX: M50.122 Cervical disc disorder at C5-C6 level with radiculopathy (principal)
CPT/HCPCS: 72050

== ENCOUNTER → 2020-07-31 07:49 | Outpatient (CLI) | payer OTHER, SELFPAY ==
--- NOTE | 2020-07-31 07:49 | DI.ECHO.S_ITS ---
[facility]---------+ [facility] +---------+ : : [address] [place] : : : : [id number] : : : : Phone: [phone]+ Echocardiogram Report + + :Name: ALLY PIMENTEL Study Date: 07/31/2020 Height: 65 in : :[facility] Weight: 187 lb : : Gender: Female BSA: 1.9 m2 : :: 1965 Age: 55 yrs BP: 122/90 mmHg: :Reason For Study: BREAST CANCER, HX OF LOW EF, HX OF HERCEPTIN : :Ordering Physician: ALONSO, : :TAYLOR Performed By: Annie Tinsley : :Referring: TAYLOR GUPTA : + + Interpretation Summary Limited Echo: Normal left ventricular size wiht mildly to moderately reduced systolic function (EF 40-45%). Left ventricular global longitudinal strain average is -17.2%. Compared to the Echo done 12/06/2018, no significant change. Procedure: A two-dimensional transthoracic echocardiogram with color flow and Doppler was performed in limited views only. The study quality was technically adequate. Comparison is made with the echocardiogram of 12/06/2018. The patient was in sinus bradycardia with heart rates between 49- 56 bpm during the exam. Left Ventricle: The left ventricle is mildly dilated. There is normal left ventricular wall thickness. Left ventricular global longitudinal strain average is -17.2%. The ejection fraction is estimated to be 40-45%. There is mild to moderate global hypokinesis of the left ventricle. Right Ventricle: The right ventricle is normal in size and function. Atria: The left atrial size is normal. Right atrial size is normal. There is no Doppler evidence for an interatrial shunt. Great Vessels: The IVC is of normal diameter and collapses greater than 50% with a sniff. This suggests a low right atrial pressure of 3 mm Hg. Pericardium/ Pleura There is no pericardial effusion. There is no pleural effusion. MMode/2D Measurements & Calculations LVIDd: 5.2 cm LA A2 area: 17.2 cm2 LVIDs: 4.0 cm LA A4 area: 20.9 cm2 FS: 23.8 % LA length (vol): 5.1 cm IVSd: 0.91 cm LA vol: 59.3 ml LVPWd: 0.82 cm LA vol index: 30.8 ml/m2 LV joseph. diameter/BSA (cm/m^2): 2.7 LV sys. diameter/BSA (cm/m^2): 2.1 RA long axis: 4.9 cm RVD1 (basal): 3.3 cm RA area: 16.1 cm2 TAPSE: 2.1 cm RA vol: 45.1 ml RA : 23.5 ml/m2 IVC diam: 1.8 cm Reading Physician:09:05 AM
== END ==
PROVIDERS: Family Provider Internal Medicine; PCP Family Medicine; Referring Provider Family Medicine; Visit Provider Internal Medicine Hematology & Oncology
DX: C50.912 Malignant neoplasm of unspecified site of left female breast (principal); Z92.21 Personal history of antineoplastic chemotherapy
CPT/HCPCS: 93307

== ENCOUNTER → 2020-09-16 07:32 | Outpatient (CLI) | payer OTHER, SELFPAY ==
[2020-09-16 08:21] LABS: Hemoglobin A1C% w Est Avg Glu 5.4 % (4.0-6.0)
[2020-09-16 08:23] LABS: Alanine Aminotransferase 16 IU/L (<35); Albumin 4.3 g/dL (3.5-5.0); Albumin Globulin Ratio 1.4 (1.0-2.8); Alkaline Phosphatase 70 U/L (38-126); Aspartate Aminotransferase 25 IU/L (14-36); BUN Creatinine Ratio 16.3 (6-22); Bilirubin Total 0.3 mg/dL (0.2-1.3); Blood Urea Nitrogen 13 mg/dL (7-17); Calcium 9.4 mg/dL (8.4-10.2); Carbon Dioxide 31 mmol/L (22-32); Chloride 103 mmol/L (98-107); Cholesterol 204 mg/dL (140-199); Estimated Glomerular Filt Rate > 60.0 mL/min (>60); Glucose 104 mg/dL (70-100); HDL Cholesterol 68 mg/dL (40-60); HEMOLYSIS < 15 (0-50); LDL Cholesterol Calculated 122 mg/dL (<100); Sodium 138 mmol/L (137-145); Total Protein 7.3 g/dL (6.3-8.2); Triglycerides 68 mg/dL (35-150)
[2020-09-16 08:59] LABS: Free T4, Direct Thyroxine 0.93 ng/dL (0.78-2.19)
[2020-09-16 09:13] LABS: Thyroid Stimulating Hormone 2.38 uIU/mL (0.47-4.68)
== END ==
PROVIDERS: Family Provider Internal Medicine; PCP Family Medicine; Referring Provider Family Medicine; Visit Provider Family Medicine
DX: E88.81 Metabolic syndrome and other insulin resistance (principal); I10 Essential (primary) hypertension
CPT/HCPCS: 36415; 80053; 80061; 83036; 84439; 84443

== ENCOUNTER → 2021-01-06 09:07 | Outpatient (CLI) | payer OTHER, SELFPAY ==
--- NOTE | 2021-01-06 09:08 | DI.US.S_ITS ---
PROCEDURE: US ABDOMEN COMPLETE INDICATIONS: RIGHT LOWER QUADRANT PAIN. HISTORY OF BREAST CANCER. TECHNIQUE: Real-time scanning was performed of the abdominal and retroperitoneal organs, with image documentation. COMPARISON: [facility], , US ABDOMEN COMPLETE, 11/29/2018, 10:09. FINDINGS: Liver: Liver is normal in size and homogeneous in echotexture mildly hyperechoic consistent with fatty infiltration. Main portal vein blood flow direction is towards the heart. Gallbladder: Gallbladder is normal. Biliary ducts: Intrahepatic bile ducts are non-dilated. Extrahepatic bile duct caliber measures 3.8 mm. Normal is 6-7 mm or less in diameter, or 10 mm or less post-cholecystectomy. Pancreas: Visualized portions of the pancreas are sonographically normal. Spleen: Spleen is normal in size and homogeneous in echotexture. Kidneys: Kidneys are normal in size and echotexture. Right kidney measures 10.2 cm long; left kidney measures 10.8 cm long. No hydronephrosis or nephrolithiasis. No solid masses. Aorta: Visualized aorta is normal in caliber at less than 3 cm. Iliacs: Proximal common iliac arteries are normal in caliber at less than 2.5 cm. IVC: Intrahepatic inferior vena cava is patent. Miscellaneous: No free abdominal fluid. IMPRESSION: Hepatic echotexture is increased consistent with fatty infiltration. No lesion found, source of current symptoms at the right lower quadrant is not identified. Dictated by: Guanaco Alvarado M.D. on 01/06/2021 at 12:37 Approved by: Guanaco Alvarado M.D. on 01/06/2021 at 12:39
== END ==
PROVIDERS: Family Provider Internal Medicine; PCP Family Medicine; Referring Provider Internal Medicine Hematology & Oncology; Visit Provider Internal Medicine Hematology & Oncology
DX: R10.31 Right lower quadrant pain (principal); Z85.3 Personal history of malignant neoplasm of breast
CPT/HCPCS: 76700

== ENCOUNTER → 2022-01-06 08:07 | Outpatient (CLI) | payer OTHER, SELFPAY ==
[2022-01-06 08:37] LABS: Hemoglobin A1C% w Est Avg Glu 5.6 % (4.0-6.0)
[2022-01-06 08:43] LABS: Cholesterol 196 mg/dL (140-199); HDL Cholesterol 64 mg/dL (40-60); LDL Cholesterol Calculated 116 mg/dL (<100); Triglycerides 78 mg/dL (35-150)
== END ==
PROVIDERS: Family Provider Internal Medicine; PCP Family Medicine; Referring Provider Family Medicine; Visit Provider Family Medicine
DX: E88.81 Metabolic syndrome and other insulin resistance (principal); I10 Essential (primary) hypertension; N32.81 Overactive bladder
CPT/HCPCS: 80061; 83036

== ENCOUNTER → 2022-09-09 07:30 | Outpatient (CLI) | payer OTHER, SELFPAY ==
[2022-09-09 08:18] LABS: Add Manual Diff / Slide Review NO; Basophils Absolute Auto 0 /uL (0-100); Basophils Percent Auto 0.8 % (0-2); Eosinophils Absolute Auto 100 /uL (0-450); Eosinophils Percent Auto 2.2 % (2-4); Hemoglobin 13.1 g/dL (12.0-16.0); Lymphocytes Absolute Auto 1700 /uL (1100-4500); Lymphocytes Percent Auto 34.1 % (25-40); Mean Corpuscular HGB Conc 33.7 % (30-36); Mean Corpuscular Volume 89.1 fL (80-100); Monocytes Absolute Auto 500 /uL (0-900); Monocytes Percent Auto 10.1 % (3-14); Neutrophils Absolute Auto 2600 /uL (1500-7000); Neutrophils Percent Auto 52.8 % (50-75); Platelet Count 282 X10^3/uL (150-400); Red Blood Cell Count 4.38 X10^6/uL (4.0-5.2); Red Cell Distribution Width 13.1 % (11.6-14.8)
[2022-09-09 08:49] LABS: Alanine Aminotransferase 25 IU/L (<35); Albumin 4.1 g/dL (3.5-5.0); Albumin Globulin Ratio 1.6 (1.0-2.8); Alkaline Phosphatase 69 U/L (38-126); Aspartate Aminotransferase 27 IU/L (14-36); BUN Creatinine Ratio 13.7 (6-22); Bilirubin Total 0.5 mg/dL (0.2-1.3); Blood Urea Nitrogen 10 mg/dL (7-17); Calcium 9.1 mg/dL (8.4-10.2); Carbon Dioxide 27 mmol/L (22-32); Chloride 102 mmol/L (98-107); Estimated Glomerular Filt Rate > 60 mL/min (>60); Globulin 2.5 g/dL (1.7-4.1); Glucose 96 mg/dL (70-100); HEMOLYSIS < 15 (0-50); Sodium 136 mmol/L (137-145); Total Protein 6.6 g/dL (6.3-8.2)
== END ==
PROVIDERS: PCP Family Medicine; Referring Provider Family Medicine; Visit Provider Family Medicine
DX: E88.81 Metabolic syndrome and other insulin resistance (principal); I10 Essential (primary) hypertension; N32.81 Overactive bladder
CPT/HCPCS: 36415; 80053; 85025

== ENCOUNTER → 2022-09-16 07:59 | Outpatient (CLI) | payer OTHER, SELFPAY ==
[2022-09-16 10:02] LABS: Free T4, Direct Thyroxine 0.97 ng/dL (0.78-2.19)
[2022-09-16 10:16] LABS: Thyroid Stimulating Hormone 1.66 uIU/mL (0.47-4.68)
== END ==
PROVIDERS: PCP Family Medicine; Referring Provider Family Medicine; Visit Provider Family Medicine
DX: E04.1 Nontoxic single thyroid nodule (principal); J30.2 Other seasonal allergic rhinitis; R53.83 Other fatigue
CPT/HCPCS: 36415; 84439; 84443

== ENCOUNTER → 2022-09-21 08:44 | Outpatient (CLI) | payer OTHER, SELFPAY ==
--- NOTE | 2022-09-21 08:44 | DI.US.S_ITS ---
PROCEDURE: US THYROID INDICATIONS: NODULE TECHNIQUE: Real-time scanning was performed of the thyroid gland, with image documentation. COMPARISON: [facility], [place], US THYROID, 09/19/2020, 8:40. FINDINGS: Right: Thyroid lobe measures 4.6 x 1.7 x 2.1 cm, and is heterogeneous in echotexture. Left: Thyroid lobe measures 4.3 x 1.5 x 1 point cm, and is heterogeneous in echotexture. Isthmus: 2 mm thick. Nodule number: 1 Location: Left mid Size: 0.6 x 0.8 x 1.0 cm; 0.7 x 0.8 x 1.0 cm previously. Composition: Solid Echogenicity: Hypoechoic Shape: wider than tall. Margins: Ill-defined Echogenic foci: Punctate Total points: 8 ACR TI-RADS category: 5 Nodule number: 2 Location: Left superior Size: 0.7 x 0.4 x 0.5 cm; new. Composition: Solid Echogenicity: Hypoechoic Shape: wider than tall. Margins: Ill-defined Echogenic foci: Punctate Total points: 8 ACR TI-RADS category: 5 Nodule number: 3 Location: Isthmus, left Size: 0.5 x 0.4 x 0.6 cm; 0.5 x 0.4 x 0.4 cm. Composition: Solid Echogenicity: Hypoechoic Shape: wider than tall. Margins: Small Echogenic foci: Non Total points: 4 ACR TI-RADS category: 4 Nodule number: 4 Location: Right inferior Size: 0.7 x 0.4 x 0.5 cm; new. Composition: Solid Echogenicity: Hypoechoic Shape: wider than tall. Margins: Small Echogenic foci: None Total points: 4 ACR TI-RADS category: 4 IMPRESSION: Thyroid nodule 1 and 2 are TI-RADS 5 nodules. Nodule 1 is stable in size since 09/19/2020. Nodule 2 is new. Please see enclosed follow-up recommendation. ACR TI-RADS definitions and recommendations: TI-RADS 1 (benign): 0 points. FNA not needed. TI-RADS 2 (not suspicious): 2 points. FNA not needed. TI-RADS 3 (mildly suspicious): 3 points. * FNA if 2.5 cm or larger, follow up if 1.5 cm or larger (at 1, 3, and 5 years). TI-RADS 4 (moderately suspicious): 4-6 points. * FNA if 1.5 cm or larger, follow up if 1 cm or larger (at 1, 2, 3, and 5 years). TI-RADS 5 (highly suspicious): 7 points or more. * FNA if 1 cm or larger, follow up if 0.5 cm or larger (every year for 5 years). Dictated by: Mine Paul M.D. on 09/21/2022 at 9:27 Approved by: Mine Paul M.D. on 09/21/2022 at 9:35
== END ==
PROVIDERS: PCP Family Medicine; Referring Provider Family Medicine; Visit Provider Family Medicine
DX: E04.2 Nontoxic multinodular goiter (principal)
CPT/HCPCS: 76536

== ENCOUNTER → 2022-10-08 07:54 | Outpatient (CLI) | payer OTHER, SELFPAY ==
[2022-10-08 10:14] LABS: Erythrocyte Sedimentation Rate 17 MM/HR (0-20)
[2022-10-08 11:07] LABS: Ferritin 57 ng/mL (11-264)
== END ==
PROVIDERS: PCP Family Medicine; Referring Provider Physician Assistant Medical; Visit Provider Physician Assistant Medical
DX: L65.9 Nonscarring hair loss, unspecified (principal)
CPT/HCPCS: 36415; 82728; 85651

== ENCOUNTER → 2022-11-25 08:38 | Outpatient (CLI) | payer OTHER, SELFPAY ==
--- NOTE | 2022-11-25 08:39 | DI.US.S_ITS ---
ULTRASOUND OF LEFT BREAST AND AXILLA: 11/25/2022 CLINICAL: Left axillary swelling. Hx lt brst cancer/bilat mastectomy 2016. Comparison is made to exam dated: 01/18/2017 [facility]. CT Chest abdomen and pelvis 09/25/2019. Color flow and real-time ultrasound of the left breast axilla were performed. Clifford scale images of the real-time examination were reviewed. No significant abnormalities were seen sonographically in the left axilla. No enlarged lymph nodes. Left breast implant is noted. IMPRESSION: BENIGN There is no sonographic evidence of malignancy. No left axillary adenopathy. Exam findings were conveyed to the patient. Left breast implant is noted. If their is concern about the integrity of the breast implant and/or a second look of the axilla with cross-sectional imaging is needed, Breast Implant MRI would be helpful for further evaluation. This exam was interpreted at Station ID: [id number]. Electronically Signed By: Song Foster M.D. [facility] [place]/:11/25/2022 09:15:00 Entry: - 11/25/2022 14:19:06 letter sent: Normal Exam Ultrasound BI-RADS: 2 Benign
== END ==
PROVIDERS: PCP Family Medicine; Referring Provider Family Medicine; Visit Provider Family Medicine
DX: N63.31 Unspecified lump in axillary tail of the right breast (principal); Z85.3 Personal history of malignant neoplasm of breast; Z90.13 Acquired absence of bilateral breasts and nipples; Z98.82 Breast implant status
CPT/HCPCS: 76882

== ENCOUNTER → 2022-11-26 10:13 | Outpatient (CLI) | payer OTHER, SELFPAY ==
--- NOTE | 2022-11-26 10:15 | DI.NM.S_ITS ---
PROCEDURE: [place] BONE SCAN WHOLE BODY RADIOPHARMACEUTICAL: 21.2 mCi Tc-99m MDP IV. INDICATIONS: breast cancer, now with breast pain and bone pain TECHNIQUE: Delayed whole-body scintigrams were obtained approximately 3-4 hours after intravenous injection of radiotracer. Anterior and posterior views were acquired from vertex to feet. COMPARISON: [place], [place], BONE SCAN WHOLE BODY, 03/29/2016, 15:16. [facility], CT, CT CHEST ABD PEL W CON, 11/26/2022, 11:16. [place], [place], [place] BONE SCAN WHOLE BODY, 09/25/2019, 11:19. FINDINGS: No lesions are identified in skull, sternum, clavicles, scapulae, ribs, bony pelvis, and visualized shafts of the long bones. There are foci of increased uptake in cervical, thoracic and lumbar spine most likely secondary to degenerative disc and facet disease; early metastasis to spine could be obscured by degenerative changes. There are foci of increased periarticular activity most pronounced in the left ankle, compatible with degenerative/arthritic changes. IMPRESSION: No scintigraphic findings to suggest osseous metastasis. Dictated by: Mine Paul M.D. on 11/26/2022 at 16:08 Approved by: Mine Paul M.D. on 11/26/2022 at 16:10
--- NOTE | 2022-11-26 10:15 | DI.CT.S_ITS ---
PROCEDURE: CT CHEST ABD PEL W CON INDICATIONS: breast cancer, now with breast pain and bone pain TECHNIQUE: After the administration of oral and intravenous contrast, axial sections acquired from the supraclavicular neck to the pubic symphysis. Coronal and sagittal reformats were performed. For radiation dose reduction, the following was used: automated exposure control, adjustment of mA and/or kV according to patient size. COMPARISON: [facility], CT, CT CHEST ABD PEL W CON, 09/25/2019, 8:52. FINDINGS: Image quality: Excellent. CHEST: Lower Neck: No enlarged lymph nodes. Thyroid: Within normal limits. Axillae: No enlarged lymph nodes. Left axillary lymph node dissection. Chest Wall: Bilateral breast implants. Lungs and Airways: Stable 3 mm solid nodule, right lower lobe, statistically benign (series 5, image 168). Stable juxtapleural nodules along the right major fissure, presumably intrapulmonary lymph nodes, also stable from prior and benign. Pleura: No pneumothorax or pleural effusions. Heart: Heart size is normal. No pericardial effusion. Thoracic Vessels: The aorta and pulmonary arteries demonstrate normal size. Mediastinum and Catie: No enlarged lymph nodes. Esophagus: No wall thickening. No hiatal hernia. ABDOMEN: Liver: Unremarkable. Gallbladder: Unremarkable. Biliary ducts: Unremarkable. Pancreas: Unremarkable. Spleen: Unremarkable. Adrenal Glands: Unremarkable. Kidneys and Ureters: Unremarkable. Stomach and Bowel: Stomach, small bowel loops, and colon are unremarkable. Peritoneum: No abnormal intraperitoneal fluid. No free air. Ventral Wall: No hernia. Abdominal Nodes: No retroperitoneal or mesenteric adenopathy by size criteria. Vessels: Aorta and inferior vena cava are normal in size. PELVIS: Pelvic Organs: Unremarkable. Bladder: Unremarkable. Pelvic Nodes: No enlarged lymph nodes. Miscellaneous: No inguinal hernias are seen. Bones: Unremarkable. IMPRESSION: 1. No evidence of metastatic disease. Dictated by: Wilson Garcia M.D. on 11/26/2022 at 12:49 Approved by: Wilson Garcia M.D. on 11/26/2022 at 12:53
== END ==
PROVIDERS: PCP Family Medicine; Referring Provider Internal Medicine Hematology & Oncology; Visit Provider Internal Medicine Hematology & Oncology
DX: C50.912 Malignant neoplasm of unspecified site of left female breast (principal); N64.4 Mastodynia; M89.8X9 Other specified disorders of bone, unspecified site
CPT/HCPCS: 71260; 74177; 78306; A9503; Q9967

== ENCOUNTER → 2023-01-03 07:38 | Outpatient (CLI) | payer OTHER, SELFPAY ==
--- NOTE | 2023-01-03 | DI.US.S_ITS ---
PROCEDURE: US FINE NEEDLE ASPIRATION INDICATIONS: LEFT THYROID MID NODULE TECHNIQUE: The indications, alternatives, benefits, risks, and complications of the procedure were explained to the patient. Written informed consent was obtained and placed in the chart. The thyroid region was examined sonographically and a site was chosen for ultrasound guided percutaneous sampling. The skin was prepared and draped in the usual fashion, and anesthetized with 1% lidocaine infiltrated from the skin down to the thyroid gland. Multiple passes were then performed, with contents emptied into an appropriate pathology specimen container. A bandage was applied to the area of access at completion of the study. COMPARISON: None. FINDINGS: Location(s) of lesion(s) sampled: Mid left thyroid nodule measuring 1 cm. Apex: 25 gauge hypodermic needles x7; 22 gauge hypodermic needles x3. Medications: 1% lidocaine for local anaesthesia. Complications: None. After 1st FNA attempt inadequate cells were obtained and 2nd FNA was performed as tolerated by the patient. IMPRESSION: Successful ultrasound-guided thyroid nodule fine needle aspiration, with cytology results pending. Please see chart below for management recommendations based on cytology results. [facility] ReportingRecommendationsNon-diagnostic* Repeat US-guided FNA, with on-site cytology evaluation if possible. * Repeated non-diagnostic nodules without high suspicion US features: close observation vs surgical consult. * Consider surgery if nodule has high suspicion US features, grows >20% in 2 dimensions on followup, or patient has clinical risk factors for malignancy. Benign* If nodule has high suspicion US features: repeat US and FNA within 12 months. * If nodule has low to intermediate suspicion US features: repeat US at 12-24 months. If nodule grows (20% increase in at least 2 dimensions, with minimal increase of 2 mm or >50% change in volume), or development of new suspicious US features, then repeat FNA or continue followup. * If nodule has very low suspicion US features: followup US at >24 months. Atypia of undetermined significance, follicular lesion of undetermined significanceRepeat FNA, molecular testing, followup US, or surgical consult.Follicular neoplasm, suspicious for follicular neoplasmSurgical consult; also consider molecular testing. Suspicious for malignancySurgical consult.MalignantSurgical consult. Dictated by: Song Foster M.D. on 01/03/2023 at 10:24 Approved by: Song Foster M.D. on 01/03/2023 at 10:26
--- NOTE | 2023-01-03 | PATH_ITS ---
Note [facility] Accession Number: [id number] TESTS RESULT FLAG UNITS REF RANGE LAB Clinician Provided Cytology Information No. of containers..01 Other (Miscellaneous) No. of containers..00 Previously Prepared Cytology Slide Source: LEFT THYROID MID NODULE #1 DIAGNOSIS: LEFT THYROID MID NODULE #1 NEGATIVE FOR MALIGNANT CELLS. [place] CATEGORY II. SPECIMEN CONSISTS OF BENIGN FOLLICULAR CELLS, COLLOID, AND BLOOD. THIS PATTERN IS MOST CONSISTENT WITH A BENIGN FOLLICULAR NODULE. Pathologist ICD10: E04.1 Signed out by: Rosalva Gomez MD, Pathologist NPI- [id number] Performed by: Stacy Chavez, Mock Up Assembler ([facility]) Gross description: 30 CC, PINK, CLEAR RECIEVED: IN CYTOLYT WITH 10 ALCOHOL FIXED AND 10 QUICK STAINED SLIDES ALSO 1 RNA VIAL WAS RECEIVED.VO /VDU 01/04/2023 0526 [facility] FLAG LEGEND: L-Low Normal,H-High Normal,LL-Alert Low,HH-Alert High <-Panic Low,>-Panic High,A-Abnormal,AA-Critical Abnormal Performed at: 01 =Z [facility] [address], [place] [address] Malcom Clayton MD, Performed at: 01 [facility] [address], [place], [place] [id number] MD Malcom Clayton MD Phone: [phone]
== END ==
PROVIDERS: PCP Family Medicine; Referring Provider Otolaryngology; Visit Provider Otolaryngology
DX: E04.2 Nontoxic multinodular goiter (principal)
CPT/HCPCS: 10005

== ENCOUNTER → 2024-02-14 07:19 | Outpatient (CLI) | payer OTHER, SELFPAY ==
[2024-02-14 08:53] LABS: Alanine Aminotransferase 27 IU/L (<35); Albumin 4.2 g/dL (3.5-5.0); Albumin Globulin Ratio 1.6 (1.0-2.8); Alkaline Phosphatase 68 U/L (38-126); Aspartate Aminotransferase 28 IU/L (14-36); BUN Creatinine Ratio 23.6 (6-22); Bilirubin Total 0.6 mg/dL (0.2-1.3); Blood Urea Nitrogen 17 mg/dL (7-17); Calcium 9.3 mg/dL (8.4-10.2); Carbon Dioxide 28 mmol/L (22-32); Chloride 105 mmol/L (98-107); Cholesterol 214 mg/dL (140-199); Estimated Glomerular Filt Rate > 60 mL/min (>60); Globulin 2.7 g/dL (1.7-4.1); Glucose 91 mg/dL (70-100); HDL Cholesterol 65 mg/dL (40-60); HEMOLYSIS < 15 (0-50); LDL Cholesterol Calculated 131 mg/dL (<100); Lipase 84 U/L (23-300); Sodium 138 mmol/L (137-145); Total Protein 6.9 g/dL (6.3-8.2); Triglycerides 89 mg/dL (35-150)
[2024-02-14 09:04] LABS: Add Manual Diff / Slide Review NO; Basophils Absolute Auto 0 /uL (0-100); Basophils Percent Auto 0.7 % (0-2); Eosinophils Absolute Auto 100 /uL (0-450); Eosinophils Percent Auto 2.2 % (2-4); Hematocrit 40.2 % (36-46); Hemoglobin 13.7 g/dL (12.0-16.0); Lymphocytes Absolute Auto 1600 /uL (1100-4500); Lymphocytes Percent Auto 32.2 % (25-40); Mean Corpuscular HGB Conc 34.2 % (30-36); Mean Corpuscular Hemoglobin 31.2 PG (26-34); Mean Corpuscular Volume 91.2 fL (80-100); Monocytes Absolute Auto 500 /uL (0-900); Monocytes Percent Auto 9.7 % (3-14); Neutrophils Absolute Auto 2800 /uL (1500-7000); Neutrophils Percent Auto 55.2 % (50-75); Platelet Count 289 X10^3/uL (150-400); Red Blood Cell Count 4.41 X10^6/uL (4.0-5.2); Red Cell Distribution Width 12.9 % (11.6-14.8); White Blood Cell Count 5.1 X10^3/uL (4.5-11.0)
[2024-02-14 11:43] LABS: Hemoglobin A1C% w Est Avg Glu 5.6 % (4.0-6.0)
== END ==
PROVIDERS: PCP Family Medicine; Referring Provider Family Medicine; Visit Provider Family Medicine
DX: Z00.00 Encounter for general adult medical examination without abnormal findings (principal); I10 Essential (primary) hypertension; R53.83 Other fatigue; R73.03 Prediabetes
CPT/HCPCS: 36415; 80053; 80061; 83036; 83690; 85025

== ENCOUNTER → 2025-05-06 07:03 | Outpatient (CLI) | payer OTHER, SELFPAY ==
[2025-05-06 07:55] LABS: Add Manual Diff / Slide Review NO; Hematocrit 39.3 % (36-46); Hemoglobin 13.6 g/dL (12.0-16.0); Lymphocytes Absolute Auto 1900 /uL (1100-4500); Mean Corpuscular HGB Conc 34.7 % (30-36); Mean Corpuscular Hemoglobin 30.7 PG (26-34); Mean Corpuscular Volume 88.5 fL (80-100); Platelet Count 250 X10^3/uL (150-400)
[2025-05-06 08:16] LABS: Alanine Aminotransferase 16 IU/L (<35); Albumin 4.2 g/dL (3.5-5.0); Albumin Globulin Ratio 1.6 (1.0-2.8); Alkaline Phosphatase 64 U/L (38-126); Blood Urea Nitrogen 17 mg/dL (7-17); Calcium 9.3 mg/dL (8.4-10.2); Carbon Dioxide 28 mmol/L (22-32); Chloride 102 mmol/L (98-107); Cholesterol 194 mg/dL (140-199); Estimated Glomerular Filt Rate > 60 mL/min (>60); Globulin 2.6 g/dL (1.7-4.1); Glucose 98 mg/dL (70-99); HDL Cholesterol 69 mg/dL (40-60); HEMOLYSIS < 15 (0-50); Potassium 4.0 mmol/L (3.4-5.1); Sodium 137 mmol/L (137-145); Total Protein 6.8 g/dL (6.3-8.2); Triglycerides 85 mg/dL (35-150)
[2025-05-06 08:46] LABS: TSH w/ Reflex to FT4 1.66 uIU/mL (0.47-4.68)
== END ==
PROVIDERS: PCP Family Medicine; Referring Provider Family Medicine; Visit Provider Family Medicine
DX: Z00.00 Encounter for general adult medical examination without abnormal findings (principal)
CPT/HCPCS: 36415; 80053; 80061; 84443; 85025